=== PATIENT | female | born 1985 | race Caucasian/White ===

== ENCOUNTER → 2020-03-17 09:15 | Outpatient (CLI) | payer OTHER, SELFPAY ==
--- NOTE | ~2020-03-17 | US_ITS ---
US breast BI complete DATE: 03/17/2020 10:04 INDICATION: Bilateral axillary pain TECHNIQUE: Real-time imaging of both complete breasts and axillary areas COMPARISON: None FINDINGS: Bilateral benign-appearing axillary lymph nodes are noted, measuring up to approximately 5 x 10 x 14.5 mm on the right, a 7 x 13 x 11 mm on the left. There are numerous scattered benign cysts and circumscribed hypoechoic parallel solid subcentimeter l esions in each breast. No suspicious solid lesion or suspicious shadowing is evident. IMPRESSION: BI-RADS Category 2: Benign Recommendation: Routine mammographic screening beginning at age 40 Reviewed, dictated and finalized at [facility]. Reviewed, dictated and finalized at [facility].
== END ==
PROVIDERS: Visit Provider Nurse Practitioner Obstetrics & Gynecology
DX: M79.629 Pain in unspecified upper arm (principal); R92.2 Inconclusive mammogram
CPT/HCPCS: 76641

== ENCOUNTER 2022-08-27 10:56 | Outpatient (CLI) | payer OTHER, SELFPAY ==
--- NOTE | ~2022-08-27 | XR_ITS ---
EXAMINATION: XR hysterosalpingogram DATE: 08/27/2022 13:29 CDT INDICATION: Infertility TECHNIQUE: Fluoroscopy was provided for a hysterosalpingogram performed by Dr. Josue Horta. 22 fluoros copic images. 0.4 minutes of fluoroscopy time. 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 There is normal intraluminal morphology of the uterus. The fallopian tubes are normal in appearance and a re widely patent, with free spill into the peritoneal cavity from both sides. IMPRESSION: 1. Normal hysterosalpingogram. The uterus demonstrates normal intraluminal morphology and both fall opian tubes are patent. Reviewed, dictated and finalized at [facility]. IMPRESSION: 1. Normal hysterosalpingogram. The uterus demonstrates normal intraluminal mo rphology and both fallopian tubes are patent.
[2022-08-27 12:37] LABS: Beta HCG Quantitative < 2.39 mIU/ML
--- NOTE | 2022-08-27 13:08 | W.PM.PROC2 ---
Procedure Note - Detailed Date of Procedure 08/27/22 Pre-op Diagnosis infertility Post-op Diagnosis Same Procedure Performed Hysterosalpingogram Surgeon Jose R Horta MD Anesthesia None Indications unexplained infertility Findings normal hysterosalpingogram Description of Procedure the patient was placed on the fluoroscopy table. A speculum was placed in the vagina. Cervix was grasped with a tenaculum. The catheter was placed the uterine cavity and the bulb was inflated. The speculum was removed with the angiocath still placed in the intrauterine cavity. Dye was then removed. The catheter. Fluoroscopic images obtained this process. Patient experienced some moderate to severe discomfort. The balloon of the catheter was deflated and the catheter was removed while the images were being obtained. The procedure was terminated. Patient tolerated the procedure well. There were no complications. Estimated Blood Loss 0 Complications No immediate complications Condition Stable Disposition Other
== END 2022-08-27 10:57 | disposition home or self-care (01) ==
PROVIDERS: PCP Family Medicine Adolescent Medicine; Visit Provider Obstetrics & Gynecology
DX: Z01.818 Encounter for other preprocedural examination (principal)
CPT/HCPCS: 36415; 58340; 74740; 84702; Q9966

== ENCOUNTER → 2022-09-09 11:55 | Outpatient (CLI) | payer OTHER, SELFPAY ==
--- NOTE | ~2022-09-09 | XR_ITS ---
XR_[id number]_CR DATE: 09/09/2022 12:54 INDICATION: Injury. Pain of right ribs along the anterior axillary line, approximately eighth rib TECHNIQUE: PA chest. 3 views of the right ribs. COMPARISON: None FINDINGS: Normal heart size. No hilar or mediastinal enlargement. No pulmonary infiltrate or consolid ation, pleural effusion or pulmonary vascular congestion or pneumothorax. No right rib fracture or lyndsay ne destruction is detected. IMPRESSION: Negative Reviewed, dictated and finalized at [facility]. Reviewed, dictated and finalized at [facility]. IMPRESSION: Negative
== END ==
PROVIDERS: PCP Family Medicine Adolescent Medicine; Visit Provider Family Medicine Adolescent Medicine
DX: R07.81 Pleurodynia (principal)
CPT/HCPCS: 71101

== ENCOUNTER 2022-09-20 09:22 | Emergency (ER) | payer OTHER, SELFPAY ==
--- NOTE | ~2022-09-20 | XR_ITS ---
EXAMINATION: XR ribs RT 2V w CXR 2V INDICATION: Right chest pain TECHNIQUE: PA and lateral views of the chest and 3 views of the right ribs were obtained. COMPARISON: 11/07/2015 FINDINGS: The lungs are free of acute opacities. No pleural effusion or pneumothorax. The cardiomedia stinal silhouette is normal. No displaced rib fracture is identified. IMPRESSION: 1. No acute cardiopulmonary abnormality or evidence of displaced rib fracture. Reviewed, dictated and finalized at [facility].
--- NOTE | ~2022-09-20 | US_ITS ---
EXAMINATION: US right upper quadrant DATE: 09/20/2022 11:05 INDICATION: Right upper quadrant pain TECHNIQUE: Multiple grayscale and Doppler ultrasound images of the abdomen were obtained. COMPARISON: None available FINDINGS: The head and body of the pancreas are normal. The pancreatic tail is obscured by bowel gas. The liver demonstrates increased echogenicity, heterogenous echotexture, and decreased through trans mission. No surface nodularity. Normal hepatopetal flow in the main portal vein. The gallbladder is n ormal with no abnormal wall thickening, pericholecystic fluid or stones. The normal common bile duct measures 3 mm. There was no sonographic Porter sign. IMPRESSION: 1. Diffuse hepatic steatosis. Reviewed, dictated and finalized at [facility].
[2022-09-20 09:26] VITALS: BP 149/82; PULSE 86; RESP 20; TEMP 36.6; O2SAT 100
[2022-09-20 09:57] LABS: Basophils Percent Auto 0.4 % (0.2-1.2); Eosinophils Percent Auto 0.4 % (0-4.4); Hematocrit 40.1 % (37.0-47.0); Hemoglobin 12.9 g/dL (12.0-15.0); Immature Granulocyte Absolute 0.04 K/mm3 (0.00-0.031); Immature Granulocyte Percent A 0.4 % (0-0.5); Lymphocytes Absolute Auto 2.94 K/mm3 (0.9-3.2); Lymphocytes Percent Auto 29.9 % (18.3-44.2); Mean Corpuscular HGB Conc 32.2 g/dl (32-36); Mean Corpuscular Hemoglobin 29.2 pg (26-34); Mean Corpuscular Volume 90.7 fl (80-100); Mean Platelet Volume 10.4 fl (7.4-10.4); Monocytes Absolute Auto 0.4 K/mm3 (0.1-0.6); Monocytes Percent Auto 4.3 % (2.6-8.5); Neutrophils Absolute Auto 6.4 K/mm3 (1.3-6.7); Neutrophils Percent Auto 64.6 % (45.5-73.1); Platelet Count Result 247 k/mm3 (150-375); Red Blood Count 4.42 M/mm3 (4.2-5.4); White Blood Count 9.8 K/mm3 (4.5-10.0)
[2022-09-20 10:01] LABS: Appearance Urine Clear (Clear); Bacteria Urine 1+ /hpf; Bilirubin Urine Negative (Negative); Blood Urine Trace (Negative); Color Urine Yellow (Yellow); Glucose Urine UA Negative (Negative); Ketones Urine Negative (Negative); Leukocyte Esterase Ur Trace LEU/UL (Negative); Nitrate Urine Negative (Negative); Non Pathogenic Casts 0-2; Protein Urine Negative (Negative); RBC Urine 0-2 /hpf (0-2); Specific Grav Ur 1.012 (1.001-1.035); Squamous Epithelial Cell Urine Occasional /hpf (Few); Urobilinogen Urine 0.2 mg/dL (<2.0); pH Urine 5.5 (5.0-9.0)
[2022-09-20 10:09] LABS: Alanine Aminotransferase 62 U/L (6-35); Albumin Level 4.8 g/dL (3.5-5.1); Alkaline Phosphatase 118 U/L (38-126); Anion Gap 12 mmol/L (8-16); Aspartate Amino Transferase 48 U/L (14-36); Bilirubin,Total 0.6 mg/dL (0.2-1.3); Blood Urea Nitrogen 15 mg/dL (7-17); Calcium 8.9 mg/dL (8.4-10.2); Carbon Dioxide 20 mmol/L (22-30); Chloride 103 mmol/L (98-107); Estimated CRCL calculation 95 ml/min; Estimated Glomerular Filt Rate > 60; Glucose 107 mg/dL (65-110); Potassium 3.9 mmol/L (3.4-5.0); Sodium 135 mmol/L (137-145)
[2022-09-20 10:11] LABS: Add Urine Microscopic? YES
[2022-09-20] MEDS: SODIUM CHLORIDE 0.9% IV 1,000 ML 999 ML IV CONT (10:51)
[2022-09-20] MEDS: KETOROLAC 30 MG/ML VIAL (*BKC) IV PUSH (10:51)
[2022-09-20] MEDS: methocarbamoL 500 MG TABLET PO (10:54)
[2022-09-20 11:04] LABS: Lactic Acid Reflex 1.1 mmol/L (0.7-2.0); Lipase 66 U/L (23-300)
--- NOTE | 2022-09-20 11:04 | ED.GENADULT ---
HPI - General Adult General Chief complaint: Back Pain/Injury Stated complaint: right flank Time Seen by Provider: 09/20/22 09:30 History of Present Illness HPI narrative: 37-year-old female reports for evaluation of right upper quadrant pain x1 month and right-sided thoracic pain x3 days. Patient states 1 month ago, a dog jumped on her right upper abdomen and right lower ribs. Since then she has been pain in this area, however it has slowly improved. She was evaluated by primary care and had a negative chest x-ray. States 3 days ago the pain moved to her right upper thoracic back inferior to her scapula. Reports the back pain is worse with movement and positions. Patient reports her right upper quadrant pain is also worse with positions and sometimes after eating. Denies chest pain, shortness of breath, nausea, vomiting, diarrhea, fever, bodyaches, chills, urinary complaints. Patient reports taking Flexeril for her back pain without relief. Related Data Home Medications Medication Instructions Recorded Confirmed fexofenadine 180 mg tablet 180 mg PO DAILY 11/06/21 09/09/22 ([facility] Allergy) levothyroxine 50 mcg tablet mcg 09/20/22 (Unithroid) Allergies Allergy/AdvReac Type Severity Reaction Status Date / Time No Known Allergies Allergy Unverified 09/20/22 09:48 Review of Systems Review of Systems: CONSTITUTIONAL: Denies fever, chills EYES: Denies visual changes, redness, or discharge. ENT: Denies rhinorrhea, congestion, sore throat, or otalgia. CARDIOVASCULAR: Denies chest pain, palpitations, or edema. RESPIRATORY: Denies cough or dyspnea. GASTROINTESTINAL: See HPI GENITOURINARY: Denies dysuria or hematuria. SKIN: Denies rash or itching. MUSCULOSKELETAL: See HPI NEUROLOGIC: Denies headache, numbness, dizziness, or weakness. PSYCHIATRIC: Denies anxiety or depression. [facility] Past Medical History Medical History Abnormal weight gain Bilateral knee pain Chronic GERD Patella-femoral syndrome Seasonal allergies Surgical History Surgical History History of appendectomy History of breast biopsy Family History Family History Unknown Arthritis Father Acute myocardial infarction Arthritis Cancer Father Colon polyp Heart disease Mother Arthritis Cerebrovascular accident Depression Hypertension Grandparent Carcinoma of colon Cerebrovascular accident Heart disease Social History Social History Smoking status: Never smoker Second hand tobacco smoke exposure: No Alcohol intake: current Drinks per week: 21 Substance use: never Substance use type: does not use Living arrangements: with roommate(s) Occupation/Education: occupation Gender identity (if verbalized by the patient): Female Sexual Orientation (if Verbalized by the Patient): Lesbian, Poole, or Homosexual Spiritual care concerns: No Agree to blood products: Yes Exam Narrative: GENERAL: Well-appearing, well-nourished, and in no acute distress. Patient resting comfortably in exam bed. She is pleasant and conversational. HEAD: Normocephalic, atraumatic. EYES: PERRLA and EOMI. ENT: Nares clear, no rhinorrhea or epistaxis. Mucous membranes moist. Oropharynx without tonsillar hypertrophy exudate or other lesions. NECK: Supple. CHEST: Clear to auscultation. No respiratory distress. No wheezes rales or rhonchi. No tenderness to anterior chest wall. HEART: Regular rate and rhythm. No murmur heard. Normal peripheral pulses. ABDOMEN: Soft, nondistended, normal active bowel sounds. Tenderness to the right upper quadrant with deep palpation. Positive Porter's. No tenderness to remaining abdomen. No guarding or rigidity. No overlying skin changes. BACK: No midline vertebral tendern
[2022-09-20 11:43] VITALS: BP 124/84; PULSE 75; RESP 16; O2SAT 100
--- NOTE | 2022-09-27 10:25 | PC.NURSE ---
LATE ENTRY This note is being entered to document information to the patient's record. The following information was omitted on [09/27/22], by [Tiara ROSENBAUM stopped at 1151 on 09/20/22].
== END 2022-09-20 12:14 | disposition home or self-care (01) ==
PROVIDERS: Emergency Medicine; Emergency Provider Physician Assistant; PCP Family Medicine Adolescent Medicine
DX: S29.012A Strain of muscle and tendon of back wall of thorax, initial encounter (principal); K76.0 Fatty (change of) liver, not elsewhere classified; K21.9 Gastro-esophageal reflux disease without esophagitis; X58.XXXA Exposure to other specified factors, initial encounter
CPT/HCPCS: 36415; 71046; 71100; 76705; 80053; 81001; 81025; 83605; 83690; 85025; 87086; 87088; 96361; 96374; 99284; A9270; J1885; J7030

== ENCOUNTER → 2022-09-22 14:54 | Outpatient (CLI) | payer OTHER, SELFPAY ==
--- NOTE | ~2022-09-22 | US_ITS ---
EXAMINATION: US thyroid DATE: 09/22/2022 15:08 INDICATION: Nontoxic goiter. Hyperthyroid. Taking prescription thyroid hormone. TECHNIQUE: Multiple ultrasound images of the thyroid were obtained. COMPARISON: None. FINDINGS: The right thyroid lobe measures 4.0 x 2.0 x 2.1 cm. The left thyroid lobe measures 4.3 x 1.7 x 1.6 c m. The isthmus measures 0.4 cm. There is heterogeneous echotexture and echogenicity throughout the th yroid gland. No discrete nodules identified. Normal vascular flow is present. IMPRESSION: Heterogeneous echogenicity of the thyroid gland, a nonspecific finding that can be associated with Pike shimoto thyroiditis and Graves' disease. Reviewed, dictated and finalized at [facility]. IMPRESSION: Heterogeneous echogenicity of the thyroid gland, a nonspecific finding that can be associated with Marlen thyroiditis and Graves' disease.
== END ==
PROVIDERS: PCP Internal Medicine Endocrinology, Diabetes & Metabolism; Visit Provider Internal Medicine Endocrinology, Diabetes & Metabolism
DX: E04.9 Nontoxic goiter, unspecified (principal)
CPT/HCPCS: 76536

== ENCOUNTER 2024-08-13 11:42 | Outpatient (CLI) | payer OTHER, SELFPAY ==
[2024-08-13 12:21] VITALS: BP 143/91; PULSE 86
[2024-08-13 12:28] LABS: Basophils Percent Auto 0.4 % (0.2-1.2); Eosinophils Absolute Auto 0.3 K/mm3 (0-0.3); Eosinophils Percent Auto 3.9 % (0-4.4); Hematocrit 27.9 % (37.0-47.0); Hemoglobin 8.4 g/dL (12.0-15.0); Immature Granulocyte Absolute 0.03 K/mm3 (0.00-0.031); Immature Granulocyte Percent A 0.4 % (0-0.5); Lymphocytes Absolute Auto 2.43 K/mm3 (0.9-3.2); Lymphocytes Percent Auto 31.5 % (18.3-44.2); Mean Corpuscular HGB Conc 30.1 g/dl (32-36); Mean Corpuscular Hemoglobin 23.9 pg (26-34); Mean Corpuscular Volume 79.3 fl (80-100); Mean Platelet Volume 12.1 fl (7.4-10.4); Monocytes Absolute Auto 0.3 K/mm3 (0.1-0.6); Monocytes Percent Auto 4.4 % (2.6-8.5); Neutrophils Absolute Auto 4.6 K/mm3 (1.3-6.7); Neutrophils Percent Auto 59.4 % (45.5-73.1); Platelet Count Result 211 k/mm3 (150-375); Red Blood Count 3.52 M/mm3 (4.2-5.4); Red Cell Distribution Width 21.5 % (11.5-14.5); White Blood Count 7.7 K/mm3 (4.5-10.0)
[2024-08-13 12:30] VITALS: BP 141/88; PULSE 85
[2024-08-13 12:38] LABS: Alanine Aminotransferase 19 U/L (6-35); Albumin Level 3.1 g/dL (3.5-5.1); Alkaline Phosphatase 111 U/L (38-126); Anion Gap 9 mmol/L (4-12); Aspartate Amino Transferase 25 U/L (14-36); Bilirubin,Total 0.3 mg/dL (0.2-1.3); Blood Urea Nitrogen 12 mg/dL (7-17); Calcium 8.6 mg/dL (8.4-10.2); Carbon Dioxide 17 mmol/L (22-30); Chloride 110 mmol/L (98-107); Estimated Glomerular Filt Rate > 60; Glucose 98 mg/dL (65-110); Potassium 3.7 mmol/L (3.4-5.0); Sodium 136 mmol/L (137-145); Uric Acid 5.9 mg/dL (2.5-7.5)
[2024-08-13 12:41] LABS: Add Urine Microscopic? YES; Appearance Urine Clear (Clear); Bacteria Urine 1+ /hpf; Bilirubin Urine Negative (Negative); Blood Urine Negative (Negative); Color Urine Yellow (Yellow); Glucose Urine UA Negative (Negative); Ketones Urine Negative (Negative); Leukocyte Esterase Ur Negative LEU/UL (Negative); Mucus Urine Present /lpf; Need Manual Microscopic Reviewed; Nitrate Urine Negative (Negative); Protein Urine 3+ mg/dL (Negative); RBC Urine 0-2 /hpf (0-2); Specific Grav Ur 1.011 (1.001-1.035); Squamous Epithelial Cell Urine Moderate /hpf (Few); Urobilinogen Urine 0.2 mg/dL (<2.0); pH Urine 5.5 (5.0-9.0)
[2024-08-13 12:45] VITALS: BP 142/88; PULSE 82
[2024-08-13 13:01] LABS: Creatinine Urine 70.7 mg/dL
[2024-08-13 13:17] VITALS: BP 143/91; PULSE 87
[2024-08-13 13:17] LABS: Total Protein Urine Random 295 mg/dL; Ur Ttl Prot Creatinine Ratio 4.17 mg/mg (0-0.20)
--- OUTSIDE RECORDS SUMMARY | 2024-08-13 14:18 | XMS_ITS | Clinical Summary ---
Author Organization [employer] [facility] [address] [place] [phone] Phone Care Team Providers Care Overhauler Name Role Phone Unavailable Primary Care Provider Unavailabl e Encounters Date Type Department Care Team Description 08/09/2024 12:53 PM CDT - 08/09/2024 11:59 PM CDT Hospital Encounter [facility] Jose Cisse [address] [place] [phone] Raj Oliveros MD Discharge Disposition: Home or Self Care 08/09/2024 12:45 PM CDT - 08/09/2024 11:59 PM CDT Hospital Encounter [facility] Jose Cisse [address] [place] [phone] Raj Oliveros MD Discharge Disposition: Home or Self Care 08/09/2024 Abstract [facility] - Medical [place] [address] [facility] [address] [place] [address] Karolina Moore RN 08/09/2024 Orders Only [facility] Maternal and [facility] Floor [address] [facility] [address] [place] [address] Raj Oliveros MD Gestational hypertension, antepartum (Primary Dx) from Last 3 Months Social History Tobacco Use Types Packs/Day Years Used Date Smoking Tobacco: Never Assessed Estimated Date of Delivery Comme nts Yes 10/22/2024 Sex and Gender Information Value Date Recorded Sex Assigned at Female 08/06/2024 9:23 AM CDT 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 [address] [facility] [address] [address] [facility] [address] [place] [phone] Bethany Duffy, ELANA [address] [facility] [address] [place] [address] Health Maintenance Due Date Last Done Comments HEPATITIS B VACCINES (1 of 3 - 19+ 3-dose series) 2002 CERVICAL CANCER SCREENING 2013 BREAST CANCER SCREENING 2023 INFLUENZA VACCINE (#1) 2023 Preventative Visit- Commercial 05/30/2024 03/17/2021, 03/14/2020, 11/19/2002, Additional history exists DTAP/TDAP/TD VACCINES (2 - Td or Tdap) 11/22/2032 11/22/2022 HPV VACCINES Aged Out No longer eligi ble based on patient's age to complete this topic RSV VACCINE (60+ or ) (No Doses Required) Completed Procedures Procedure Name Priority Date/Time Associated Diagnosis Comments ECHO 2D + COLOR FLOW VELOCITY Routine 08/09/2024 2:36 PM CDT screening for malformation using ultrasonics In vitro fertilization US OB DETAIL SINGLE GEST Routine 08/09/2024 2:35 PM CDT screening for malformation using ultrasonics Gestational hypertension, antepartum In vitro fertilization from Last 3 Months Results * ECHO 2D + COLOR FLOW VELOCITY (08/09/2024 2:36 PM CDT) Narrative 08/09/2024 2:36 PM CDT Order information only. Exam was auto-finalized. us Raj Oliveros MD US ORDERABLES Final Result * US OB DETAIL SINGLE GEST (08/09/2024 2:35 PM CDT) Anatomical Region Laterality Modality Pelvis Ultrasound 08/09/2024 12:5 8 PM CDT Narrative 08/09/2024 2:39 PM CDT STL COMP ----- Pat. Name: SIGIFREDO VANEGAS Study Date: 08/09/2024 12:58pm Pat. NO: [id number] Referring MD: RAJ OLIVEROS MD Site: [place] Floor Space Allocator: Rayne Baldwin RDMS : 1985 Age: 39 ----- INDICATION ----- Anatomy Survey IVF Resulting from Assistive donor sperm per pt Reproductive Technique Advanced Maternal Age (AMA), Primigravida CODING ----- Diagnoses Z3A.29: Weeks of gestation O09.513: Supervision of elderly primigravida O09.893: Supervision of other high risk pregnancies O09.813: Supervision of resulting from assisted reproductive technology Z36.3: Encounter for screening for malformations Procedures 56681: Ultrasound, uterus, real time with image documentation, and maternal evaluation plus detailed anatomic examination, transabdominal approach HISTORY ----- OB History 1 MATERNAL ASSESSMENT ----- Physical Exam Initial weight 75 kg, 166 lb. Initial BMI 28.49 kg/m METHOD ----- Transabdominal ultrasound examination ----- Mcfadden . Number of fetuses: 1 DATING ----- Method of dating: based on stated ELO GA by prior assessment 29 w + 3 d ELO by prior assessment: 10/22/2024 Ultrasound examination on: 08/09/2024 GA by U/S based upon: AC, BPD, EFW, Femur, HC GA by U/S 30 w + 3 d ELO by U/S: 10/15/2024 Assigned: based on stated ELO, selected on 08/09/2024 Assigned GA 29 w + 3 d Assigned ELO: 10/22/2024 BIOMETRY ----- BPD 75.6 mm 30w 2d 67% Hadlock OFD 103.7 mm 33w 6d >99% Marian HC 286.1 mm 31w 3d 75% Hadlock Cerebellum tr 39.1 mm 33w 0d 91% West AC 261.7 mm 30w 2d 71% Hadlock Femur 57.1 mm 30w 0d 50% Hadlock Humerus 49.9 mm 29w 2d 41% Marian HC / AC 1.09 53% Nicolaides Weight Calculation: EFW 1,548 g 30w 0d 68% Hadlock EFW (lb,oz) 3 lb 7 oz EFW by Hadlock ([id number]) Head / Face / Neck Biometry: Sr. Merchandise Planner 3.1 mm CM 3.6 mm <1% Nicolaides Inner IOD 19.7 mm Thorax / Lungs Biometry: Thoracic circ 194.4 mm 11% Lessoway Thoracic area 29.7 cm ThC / AC 0.74 Heart / Great Vessels Biometry: Cardiac axis 43 Cardiac circ 121.7 mm Cardiac area 11.5 cm CC / ThC 0.63 CA / Miguel 0.39 PA main 7.8 mm Ductus art. 4.1 mm 54% Steel Rt PA branch 3.4 mm Lt PA branch 3.7 mm Ao asc 4.4 mm Ao isthmus 3.4 mm Ao desc 5.1 mm PA main / Ao asc 1.77 McGoon Index mod. 1.4 Ao isthmus / Ductus art. 0.83 IVC 4.2 mm SVC 3.6 mm Extremities / Bony Struc Biometry: FL / BPD 0.76 FL / HC 0.20 FL / AC 0.22 GENERAL EVALUATION ----- Cardiac activity present. FHR 143 bpm. movements: present. Presentation: breech, Variable Placenta: Placental site: posterior, fundal Umbilical cord: Cord vessels: 3 vessel cord. Insertion site: placental insertion: normal Amniotic fluid: Amount of AF: normal amount. MVP 5.8 cm. NILA 15.9 cm. Q1 5.1 cm, Q2 5.8 cm, Q3 2.4 cm, Q4 2.7 cm ANATOMY ----- The following structures appear normal: Head / Neck Cranium. Lateral ventricles. Choroid plexus. Midline falx. Cavum septi pellucidi. Cerebellum. Cisterna magna. Face Orbits. Heart / Thorax RVOT view. LVOT view. 3-vessel view. 7-jkirzh-ccxtfnt view. Diaphragm. Abdomen Stomach. Kidneys. Bladder. Genitals. Spine Cervical spine. Thoracic spine. Lumbar spine. Sacral spine. Extremities / Arms. Right hand. Left hand. Legs. Right foot. Left foot. Skeleton The following structures could not be adequately visualized: Face Lips. Profile. Nose. Palate. Heart / Thorax 4-chamber view. Abdomen Abdominal wall. Cord insertion. sex: female. ECHOCARDIOGRAM ----- Situs situs solitus (normal) Cardiac rhythm regular (normal) 4-chamber view suboptimal LVOT view normal RVOT view normal 3-vessel view normal 6-kgasej-frasief view normal High short axis view normal Low short axis view normal Aortic arch view normal Ductal arch view normal SVC normal IVC normal Venous-atrial connections normal size and morphology AV connections normal alignment VA connections normal size and morphology IVC normal SVC normal Pulmonary veins normal size and morphology Right atrium normal Left atrium normal Atrial septum normal size and morphology Foramen ovale normal (in the central third/half, flap valve in left atrium) Right ventricle normal Left ventricle normal Ventricular septum normal size and morphology Tricuspid valve normal size and morphology Mitral valve normal size and morphology Pulmonary valve normal size and morphology Aortic valve normal size and morphology Cross-over gr. arteries anterior great artery (confirmed to be the pulmonary artery by its branching) which crosses the course of the proximal aorta, indicative of normal relationship of the great arteries Main PA the main pulmonary artery can be seen bifurcating into the arterial duct and the right pulmonary artery Pulmonary arteries normal Ascending aorta normal size and morphology Ductal arch normal Aortic arch normal Brachioceph. arteries normal Descending aorta normal size and morphology Ductus venosus normal Cardiac Biometry: RA width diast 13.1 mm RV width diast 12.8 mm 50% Steel RV wall diast 2.8 mm 47% Steel LA width diast 10.5 mm LV width diast 11.9 mm 36% Steel LV wall diast 2.8 mm 48% Steel IV Septum diast 2.9 mm 53% Steel LVOT diam 5.9 mm LVOT area 27.0 mm TV annulus diast 11.4 mm PV annulus syst 6.3 mm MV annulus diast 8.8 mm AoV annulus syst 4.9 mm MV annulus diast / TV annulus diast 0.77 AoV annulus syst / PV annulus syst 0.78 Heart Z-Scores: Z- FL Z- BPD Z- GA Z- EFW Zscore by RV width diast 12.8 mm 0.38 0.59 0.64 Taveras LV width diast 11.9 mm 0.18 0.46 0.49 Taveras TV annulus 11.4 mm 0.97 1.15 1.29 Taveras diast MV annulus 8.8 mm -0.45 -0.13 -0.08 Taveras diast PV annulus 6.3 mm 0.38 0.63 0.66 Taveras syst AoV annulus 4.9 mm -0.02 0.25 0.27 Taveras syst PA main 7.8 mm 1.06 1.45 1.41 Taveras Ductus art. 4.1 mm 0.41 0.67 0.64 Taveras Rt PA branch 3.4 mm 0.17 0.39 0.38 Nitin Lt PA branch 3.7 mm 0.95 1.20 1.18 Nitin Ao asc 4.4 mm -1.98 -1.69 -1.50 Nitin Ao isthmus 3.4 mm -0.46 -0.61 -0.60 -0.41 Gianni Ao desc 5.1 mm 0.44 0.73 0.76 Nitin IVC 4.2 mm 0.94 1.09 1.11 Nitin Cardiac Doppler: Tricuspid Valve: E-wave 38.65 cm/s A-wave 68.66 cm/s E / A 0.56 1% [facility]: E-wave 35.47 cm/s A-wave 54.11 cm/s E / A 0.66 36% [facility] Pulmonary Valve: Vmax 53.59 cm/s 24% Bhupinder Left Ventricular Outflow Tract: Vmax 73.70 cm/s Peak PG 2.17 mmHg DOPPLER ----- Aortic Isthmus: PS 91.39 cm/s Ductus Arteriosus: PS 109.58 cm/s MATERNAL STRUCTURES ----- Cervix Visualized Approach - Transabdominal Right Ovary Suboptimal Left Ovary Suboptimal GROWTH OVERVIEW ----- Exam date GA BPD (mm) HC (mm) AC (mm) FL (mm) HL (mm) EFW (g) 08/09/2024 29w 3d 75.6 67% 286.1 75% 261.7 71% 57.1 50% 49.9 41% 1,548 68% COMMENT ----- Patient's name and date of were verified by the event organizer before the exam IMPRESSION ----- Viable at 29 weeks complicated by IVF and advanced maternal age. The biometry is consistent with the established gestational age No structural malformations or markers of aneuploidy were identified Anatomic survey was technically limited due to the advanced gestational age Images of nose/lips, profile, palate and septal four-chamber view were suboptimal Amniotic fluid volume is normal Posterior fundal placenta with normal placental cord insertion appreciated; placenta is not low-lying A screening echocardiogram was performed today secondary to IVF. Satisfactory quality examination was obtained of the fetus. Cardiac situs, size and axis were normal. The four chamber view of the heart appeared normal. There were appropriately sized atrial and ventricular chambers, and normal appearing atrioventricular valves. Further evaluation of the ventricular outflow tracts showed two great vessels which appear to arise from the appropriate ventricles. The foramen ovale was patent with right to left shunting. The superior and inferior vena cava return to the right atrium. There are at least two pulmonary veins draining into the left atrium. There was no other signs of significant intracardiac anatomic abnormality. Normal cardiac rate, contractility and rhythm were demonstrated. Color and pulsed-wave Doppler evaluation of the atrioventricular and semilunar valves were within normal limits. Two dimensional and Doppler interrogation of the aortic and ductal arches were within normal limits. There is no evidence of pericardial effusion. The ductus venosus is normal. closure of the ductus arteriosus and foramen ovale cannot be predicted on the basis of evaluation. Additionally, small ventricular or atrial septal defects and mild valve abnormalities cannot be definitely ruled out at this time. diagnosis of coarctation of the aorta is limited secondary to patency of the ductus arteriosus. Ultrasound cannot identify all structural malformations nor exclude a diagnosis of aneuploidy. Recommendations: -Recommend a follow-up ultrasound in 4 weeks to assess growth and development -Recommend serial growth ultrasounds every 4 weeks -Recommend twice-weekly modified biophysical profile starting at 36 weeks gestation No follow-up ultrasounds were scheduled at this time. Procedure Note Randy Muñoz MD - 08/09/2024 STL COMP ----- Pat. Name:VENANCIO VANEGAStcooper Date:08/09/2024 12:58pm Pat. NO: [id number] MD:RAJ OLIVEROS [facility]Rayne Baldwin RDMS :1985Age:39 ----- INDICATION ----- Anatomy Survey IVF Resulting from Assistive donor sperm per pt Reproductive Technique Advanced Maternal Age (AMA), Primigravida CODING ----- Diagnoses Z3A.29: Weeks of gestation O09.513: Supervision of elderly primigravida O09.893: Supervision of other high riskpregnancies O09.813: Supervision of resulting fromassisted reproductive technology Z36.3: Encounter for screening formalformations Procedures [id number]: Ultrasound, uterus, real time withimage documentation, and maternal evaluation plus detailed anatomic examination,transabdominal approach HISTORY ----- OB History 1 MATERNAL ASSESSMENT ----- Physical Exam Initial weight 75 kg, 166 lb. Initial BMI 28.49kg/m METHOD ----- Transabdominal ultrasound examination ----- Mcfadden . Number of fetuses: 1 DATING ----- Method of dating:based on stated ELO GA by prior [id number] w + 3 d ELO by prior assessment:10/22/2024 Ultrasound examination on:08/09/2024 GA by U/S based upon:AC, BPD, EFW, Femur, HC GA by U/S30 w + 3 d ELO by U/S:10/15/2024 Assigned:based on stated ELO, selected on 08/09/2024 Assigned GA29 w + 3 d Assigned ELO:10/22/2024 BIOMETRY ----- BPD 75.6 mm 30w 2d67% Hadlock OFD 103.7 mm 33w 6d>99% Marian HC 286.1 mm 31w 3d75% Hadlock Cerebellum tr 39.1 mm 33w 0d91% West AC 261.7 mm 30w 2d71% Hadlock Femur 57.1 mm 30w 0d50% Hadlock Humerus 49.9 mm 29w 2d41% Marian HC / AC 1.09 53%Nicolaides Weight Calculation: EFW 1,548 g 30w 0d68% Hadlock EFW (lb,oz) 3 lb 7 oz EFW by Hadlock ([id number]) Head / Face / Neck Biometry: Sr. Merchandise Planner 3.1 mm CM 3.6 mm <1%Nicolaides Inner IOD 19.7 mm Thorax / Lungs Biometry: Thoracic circ 194.4 mm 11%Less[place]ay Thoracic area 29.7 cm ThC / AC 0.74 Heart / Great Vessels Biometry: Cardiac axis 43 Cardiac circ 121.7mm Cardiac area 11.5cm CC / ThC 0.63 CA / Miguel 0.39 PA main 7.8 mm Ductus art. 4.1 mm54% Steel Rt PA branch 3.4 mm Lt PA branch 3.7 mm Ao asc 4.4 mm Ao isthmus 3.4 mm Ao desc 5.1 mm PA main / Ao asc 1.77 McGoon Index mod. 1.4 Ao isthmus / Ductus art. 0.83 IVC 4.2mm SVC 3.6mm Extremities / Bony Struc Biometry: FL / BPD 0.76 FL / HC 0.20 FL / AC 0.22 GENERAL EVALUATION ----- Cardiac activity present. FHR 143 bpm. movements: present.Presentation: breech, Variable Placenta: Placental site: posterior, fundal Umbilical cord: Cord vessels: 3 vessel cord. Insertion site: placentalinsertion: normal Amniotic fluid: Amount of AF: normal amount. MVP 5.8 cm. NILA 15.9 cm. Q15.1 cm, Q2 5.8 cm, Q3 2.4 cm, Q4 2.7 cm ANATOMY ----- The following structures appear normal: Head / Neck Cranium. Lateral ventricles. Choroid plexus.Midline falx. Cavum septi pellucidi. Cerebellum. Cisterna magna. Face Orbits. Heart / Thorax RVOT view. LVOT view. 3-vessel view.0-kfpgqr-hivmcqo view. Diaphragm. Abdomen Stomach. Kidneys. Bladder. Genitals. Spine Cervical spine. Thoracic spine. Lumbar spine.Sacral spine. Extremities / Arms. Right hand. Left hand. Legs. Right foot.Left foot. Skeleton The following structures could not be adequately visualized: Face Lips. Profile. Nose. Palate. Heart / Thorax 4-chamber view. Abdomen Abdominal wall. Cord insertion. sex: female. ECHOCARDIOGRAM ----- Situs situs solitus (normal) Cardiac rhythm regular (normal) 4-chamber view suboptimal LVOT view normal RVOT view normal 3-vessel view normal 1-nbcwab-zwvevzp view normal High short axis view normal Low short axis view normal Aortic arch view normal Ductal arch view normal SVC normal IVC normal Venous-atrial connections normal size and morphology AV connections normal alignment VA connections normal size and morphology IVC normal SVC normal Pulmonary veins normal size and morphology Right atrium normal Left atrium normal Atrial septum normal size and morphology Foramen ovale normal (in the centralthird/half, flap valve in left atrium) Right ventricle normal Left ventricle normal Ventricular septum normal size and morphology Tricuspid valve normal size and morphology Mitral valve normal size and morphology Pulmonary valve normal size and morphology Aortic valve normal size and morphology Cross-over gr. arteries anterior great artery(confirmed to be the pulmonary artery by its branching) which crosses the course of theproximal aorta, indicative of normal relationship of the great arteries Main PA the main pulmonary artery canbe seen bifurcating into the arterial duct and the right pulmonary artery Pulmonary arteries normal Ascending aorta normal size and morphology Ductal arch normal Aortic arch normal Brachioceph. arteries normal Descending aorta normal size and morphology Ductus venosus normal Cardiac Biometry: RA width diast 13.1 mm RV width diast 12.8 mm50% Steel RV wall diast 2.8 mm47% Steel LA width diast 10.5 mm LV width diast 11.9 mm36% Steel LV wall diast 2.8 mm48% Steel IV Septum diast 2.9 mm53% Steel LVOT diam 5.9mm LVOT area 27.0mm TV annulus diast 11.4mm PV annulus syst 6.3mm MV annulus diast 8.8mm AoV annulus syst 4.9mm MV annulus diast / TV annulus diast 0.77 AoV annulus syst / PV annulus syst 0.78 Heart Z-Scores: Z- FL Z- BPD Z-GA Z- EFW Zscore by RV width diast 12.8 mm 0.38 0.590.64 Taveras LV width diast 11.9 mm 0.18 0.460.49 Taveras TV annulus 11.4 mm 0.97 1.151.29 Taveras diast MV annulus 8.8 mm -0.45 -0.13-0.08 Taveras diast PV annulus 6.3 mm 0.38 0.630.66 Taveras syst AoV annulus 4.9 mm -0.02 0.250.27 Taveras syst PA main 7.8 mm 1.06 1.451.41 Taveras Ductus art. 4.1 mm 0.41 0.670.64 Taveras Rt PA branch 3.4 mm 0.17 0.390.38 Taveras Lt PA branch 3.7 mm 0.95 1.201.18 Taveras Ao asc 4.4 mm -1.98 -1.69-1.50 Taveras Ao isthmus 3.4 mm -0.46 -0.61-0.60 -0.41 Gianni Ao desc 5.1 mm 0.44 0.730.76 Taveras IVC 4.2 mm 0.94 1.091.11 Taveras Cardiac Doppler: Tricuspid Valve: E-wave 38.65 cm/s A-wave 68.66 cm/s E / A 0.561% Hecher Mitral Valve: E-wave 35.47 cm/s A-wave 54.11 cm/s E / A 0.6636% Hecher Pulmonary Valve: Vmax 53.59 cm/s24% Bhupinder Left Ventricular Outflow Tract: Vmax 73.70cm/s Peak PG 2.17mmHg DOPPLER ----- Aortic Isthmus: PS 91.39 cm/s Ductus Arteriosus: PS 109.58cm/s MATERNAL STRUCTURES ----- Cervix Visualized Approach - Transabdominal Right Ovary Suboptimal Left Ovary Suboptimal GROWTH OVERVIEW ----- Exam date GA BPD (mm) HC (mm) AC (mm) FL(mm) HL (mm) EFW (g) 08/09/2024 29w 3d 75.6 67% 286.1 75% 261.7 71%57.1 50% 49.9 41% 1,548 68% COMMENT ----- Patient's name and date of were verified by the event organizer beforethe exam IMPRESSION ----- Viable at 29 weeks complicated by IVF and advanced maternalage. The biometry is consistent with the established gestational age No structural malformations or markers of aneuploidy wereidentified Anatomic survey was technically limited due to the advanced gestationalage Images of nose/lips, profile, palate and septal four-chamber view weresuboptimal Amniotic fluid volume is normal Posterior fundal placenta with normal placental cord insertionappreciated; placenta is not low-lying A screening echocardiogram was performed today secondary to IVF.Satisfactory quality examination was obtained of the fetus. Cardiac situs, size and axis were normal. The four chamber view ofthe heart appeared normal. There were appropriately sized atrial and ventricular chambers, and normal appearingatrioventricular valves. Further evaluation of the ventricular outflow tracts showed two great vessels which appear to arise from theappropriate ventricles. The foramen ovale was patent with right to left shunting. The superior and inferior vena cava return to theright atrium. There are at least two pulmonary veins draining into the left atrium. There was no other signs of significantintracardiac anatomic abnormality. Normal cardiac rate, contractility and rhythm were demonstrated. Color and pulsed-wave Dopplerevaluation of the atrioventricular and semilunar valves were within normal limits. Two dimensional and Doppler interrogation ofthe aortic and ductal arches were within normal limits. There is no evidence of pericardial effusion. The ductus venosus isnormal. closure of the ductus arteriosus and foramen ovale cannot be predicted on the basis of evaluation.Additionally, small ventricular or atrial septal defects and mild valve abnormalities cannot be definitely ruled out at this time. diagnosis of coarctation of the aorta is limited secondary to patency of the ductus arteriosus. Ultrasound cannot identify all structural malformations nor exclude adiagnosis of aneuploidy. Recommendations: -Recommend a follow-up ultrasound in 4 weeks to assess growth anddevelopment -Recommend serial growth ultrasounds every 4 weeks -Recommend twice-weekly modified biophysical profile starting at 36 weeksgestation No follow-up ultrasounds were scheduled at this time. Raj Oliveros MD ORDERABLES Final Result from Last 3 Months Insurance [facility] OPTIONS PPO [id number] [facility] CHOICE [id number]
--- OUTSIDE RECORDS SUMMARY | 2024-08-13 14:18 | XMS_ITS | Encounter Summary ---
Author Organization [facility] Address [address] [place] [address] Care Team Providers Care Gymnastic Teacher Name Role Phone Unavailable Primary Care Provider Unavailabl e Encounter Details Date Type Department Care Team (Late st Contact Info) Description 11/19/2002 Outpatient Historical [facility] [place] [address] [facility] [address] [address] Dave Reid MD [address] [place] [phone] Social History Tobacco Use Types Packs/Day Years Used Date Smoking Tobacco: Never Assessed Comments Unknown Sex and Gender Information Value Date Recorded Sex Assigned at Female 08/06/2024 9:23 AM CDT 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 [address] [place] [address] Bethany Duffy NP [address] [facility] [address] [place] [address] documented as of this encounter Visit Diagnoses Not on filedocumented in this encounter
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
--- OUTSIDE RECORDS SUMMARY | 2024-08-13 14:18 | XMS_ITS | Referral Summary ---
Author Organization [facility] Address [address] [place] [address] Care Team Providers Care Drawer In Plain Loom Name Role Phone Anil Conde MD Primary [...] DRAW 11/03/19 24 Active BD Regular Bevel [place] 22 gauge x 1 1/2 needle USE DIRECTED [PROGESTERONE MEDICATION] INJECT INTRAMUSCULARLY 11/03/19 24 Active BD Regular Bevel [place] 25 gauge x 1 1/2 needle USE DIRECTED [H.C.G. MEDICATION] INJECT INTRAMUSCULARLY 11/03/19 24 Active BD Regular Bevel [place] 27 gauge x 1/2 needle USE DIRECTED [...] (01/24/2024): Dysfunctional uterine bleeding;Recorded Elsewhere: No Location: [facility] Source: EHR Chronic: N Practice ID: [id number] Billable Time: 08:15:00 AM Immunizations Immunization Administration Dates Next Due Tdap 11/22/2022 Social History Tobacco Use Types Packs/Day Years [...] on file Legal Sex Female 10:56 PM QUALITY CONTROL ASSOCIATE Gender Identity Female 07/22/2022 8:55 AM QUALITY CONTROL ASSOCIATE Sexual Orientation Lesbian 07/22/2022 8: 55 AM QUALITY CONTROL ASSOCIATE Last Filed Vital Signs Vital Sign Reading [...] 01/24/2024 4:27 PM CDT Plan of Treatment Not on file Insurance [facility] CHOICE PLUS R [facility] Advance Directives For more information, please contact: [phone] * Full Code (Latest Code Status on File) Date Activated Date Inactivated Comments 11/23/2022 11:19 PM 11/26/2022 6:01 PM Care Teams Drawer In Plain Loom Relationship Specialty Start Date End Date Anil Conde MD [address] [place] [address] PCP - General Family Medicine 11/22/22
--- OUTSIDE RECORDS SUMMARY | 2024-08-13 14:18 | XMS_ITS | Data Portability ---
Author Organization [facility] [place] Address [address] [place] [address] Care Team Providers Care District Or District Office Director Name Role Phone ZAHRA CONNORS Primary Care Provider Assessment No assessment recorded. Plan of Treatment Reminders Order Date Submit Date Provider Last Modified By Organization Details Last Modified Time Details Appointments U/S OB BPP 2024 03:00P M ULTRASOUND Not available Not available Not available NST 2024 03:30P M NST SCHEDULE Not available Not available Not available OB ROUTINE 2024 04:15P M RAJ VINES MD Not available Not available Not available NST 2024 03:00P M NST SCHEDULE Not available Not available Not available U/S OB GROWTH 2024 03:30P M ULTRASOUND Not available Not available Not available NST 2024 04:00P M NST SCHEDULE Not available Not available Not available OB ROUTINE 2024 04:45P M RAJ VINES MD Not available Not available Not available NST 2024 03:00P M NST SCHEDULE Not available Not available Not available U/S OB BPP 2024 03:00P M ULTRASOUND Not available Not available Not available NST 2024 03:30P M NST SCHEDULE Not available Not available Not available OB ROUTINE 2024 04:00P M RAJ VINES MD Not available Not available Not available NST 2024 03:00P M NST SCHEDULE Not available Not available Not available U/S OB BPP 2024 03:00P M ULTRASOUND Not available Not available Not available NST 2024 03:30P M NST SCHEDULE Not available Not available Not available OB ROUTINE 2024 04:15P M RAJ VINES MD Not available Not available Not available NST 2024 03:00P M NST SCHEDULE Not available Not available Not available U/S OB BPP 2024 03:00P M ULTRASOUND Not available Not available Not available NST 2024 03:30P M NST SCHEDULE Not available Not available Not available OB ROUTINE 2024 04:00P M RAJ VINES MD Not available Not available Not available NST 2024 03:00P M NST SCHEDULE Not available Not available Not available U/S OB BPP 2024 03:00P M ULTRASOUND Not available Not available Not available NST 2024 03:30P M NST SCHEDULE Not available Not available Not available OB ROUTINE 2024 04:00P M RAJ VINES MD Not available Not available Not available NST 2024 03:00P M NST SCHEDULE Not available Not available Not available U/S OB BPP 2024 03:00P M ULTRASOUND Not available Not available Not available NST 2024 03:30P M NST SCHEDULE Not available Not available Not available OB ROUTINE 2024 04:00P M RAJ VINES MD Not available Not available Not available NST 2024 03:00P M NST SCHEDULE Not available Not available Not available NST 2024 03:00P M NST SCHEDULE Not available Not available Not available NST 2024 02:00P M NST SCHEDULE Not available Not available Not available U/S OB BPP 2024 02:30P M ULTRASOUND Not available Not available Not available OB ROUTINE 2024 03:00P M Jose R BOJORQUEZ MD Not available Not available Not available NST 2024 03:00P M NST SCHEDULE Not available Not available Not available NST 2024 02:30P M NST SCHEDULE Not available Not available Not available U/S OB BPP 2024 03:00P M ULTRASOUND Not available Not available Not available OB ROUTINE 2024 03:30P M Justyna Vegagle, CNM Not available Not available Not available NST 2024 03:00P M NST SCHEDULE Not available Not available Not available NST 2024 02:30P M NST SCHEDULE Not available Not available Not available U/S OB BPP 2024 03:00P M ULTRASOUND Not available Not available Not available OB ROUTINE 2024 03:30P M Justyna Vegagle, CNM Not available Not available Not available Lab CBC w/ auto diff 2024 025 [facility] (Lab), [address], [place], [address], 08/08/2024 04:54:34 uric acid, serum or plasma 2024 025 [facility] (Lab), [address] [facility], [place], [address], 08/08/2024 04:54:34 CMP, serum or plasma 2024 025 [facility] (Lab), [address] [facility], [place], [address], 08/08/2024 04:54:35 protein :creati nine ratio, urine 2024 025 [facility] (Lab), [address], [place], [address], 08/08/2024 04:54:34 Referral None recorde d. Procedures None recorde d. Surgeries None recorde d. Imaging non-str ess test 2024 025 [email or web address] , [address], [address], [place], [address], 08/10/2024 17:01:22 non-str ess test 2024 025 [email or web address] , [address], [address], [place], [address], 08/08/2024 00:24:58 US, obstetr ic, biophys ical profile + non-str ess test 2024 025 [email or web address] [place], [address], [place], [address], 08/07/2024 22:06:14 non-str ess test 2024 025 [email or web address] [address], [address], [place], [address], 08/04/2024 14:12:20 Medication Orders None recorde d. Patient TargetsNo targets recorded. Patient InstructionsNo instructions recorded. Reason for Referral None Reported. Results Created Date Observation Date Name Description Value Unit Range Abnormal Flag Note LastModifiedBy Organization Detail LastModifiedTime 07/25/1907/25/2024 HEMOG LOBIN (HGB) HGB 8.3 g/dL (based on docume nted legal sex) 11.6-1 5.4 low Not Available [facility] (Lab) [address] [facility], [place], [address], 07/26/2024 20:30:55 07/25/1907/25/2024 HEMAT OCRIT (HCT) HCT 28.6 % (based on docume nted legal sex) 34.0-4 5.0 low Not Available [facility] (Lab) [address], [place], [address], 07/26/2024 20:30:56 07/25/1907/25/2024 GTT - GESTA PETR Marion POND N, ACOG OB glucose, 1 hour screen 120 mg/dL 70-135 Not Available [facility] (Lab) [address], [place], [address], 07/26/2024 20:30:56 07/25/19 25 07/25/2024 HIV 1/2 ANTIG EN/AN TIBOD Y, REFLE X CONFI RMATI ON HIV antigen/anti body Nonrea ctive nonrea ctive HIV-1 antig en and HIV-1 /HIV- 2 antib odies were not detec donna. No labor atory evide nce of HIV infec tion. Not Available [facility] (Lab) [address] [facility], [place], [address], 07/26/2024 20:30:56 07/25/19 25 07/25/2024 RPR SCREE N, REFLE X TITER /CONF IRMAT ION RPR qualitative Nonrea ctive nonrea ctive Not Available [facility] (Lab) [address] [facility], [place], [address], 07/26/2024 20:30:56 08/01/19 25 07/31/2024 CBC W/DIF F WBC 10.4 10'3/ uL 3.5-10 .5 Not Available [facility] (Lab) [address] [facility], [place], [address], 08/01/2024 06:51:45 08/01/19 25 07/31/2024 CBC W/DIF F RBC 3.72 10'6/ uL (based on docume nted legal sex) 3.80-5 .20 low Not Available [facility] (Lab) [address] [facility], [place], [address], 08/01/2024 06:51:45 08/01/19 25 07/31/2024 CBC W/DIF F HGB 8.4 g/dL (based on docume nted legal sex) 11.6-1 5.4 low Not Available [facility] (Lab) [address] [facility], [place], [address], 08/01/2024 06:51:45 08/01/19 25 07/31/2024 CBC W/DIF F HCT 28.9 % (based on docume nted legal sex) 34.0-4 5.0 low Not Available [facility] (Lab) [address] [facility], [place], [address], 08/01/2024 06:51:45 08/01/19 25 07/31/2024 CBC W/DIF F MCV 77.7 fL 80.0-9 9.0 low Not Available [facility] (Lab) [address], [place], [address], 08/01/2024 06:51:45 08/01/19 25 07/31/2024 CBC W/DIF F MCH 22.6 pg 27.0-3 4.0 low Not Available [facility] (Lab) [address], [place], [address], 08/01/2024 06:51:45 08/01/19 25 07/31/2024 CBC W/DIF F MCHC 29.1 g/dL 32.0-3 5.5 low Not Available [facility] (Lab) [address], [place], [address], 08/01/2024 06:51:45 08/01/19 25 07/31/2024 CBC W/DIF F RDW 17.2 % 11.0-1 5.0 high Not Available [facility] (Lab) [address] [facility], [place], [address], 08/01/2024 06:51:45 08/01/19 25 07/31/2024 CBC W/DIF F plt 279 10'3/ uL 150-40 0 Not Available [facility] (Lab) [address], [place], [address], 08/01/2024 06:51:45 08/01/19 25 07/31/2024 CBC W/DIF F MPV 13.0 fL 8.8-12 .1 high Not Available [facility] (Lab) [address] [place], [address], 08/01/2024 06:51:45 08/01/19 25 07/31/2024 CBC W/DIF F neutrophils 59.9 % 34.0-7 3.0 Not Available [facility] (Lab) [address] [place], [address], 08/01/2024 06:51:45 08/01/19 25 07/31/2024 CBC W/DIF F lymphocytes 32.3 % 15.0-5 0.0 Not Available [facility] (Lab) [address] [place], [address], 08/01/2024 06:51:45 08/01/19 25 07/31/2024 CBC W/DIF F monocytes 5.0 % 1.0-15 .0 Not Available [facility] (Lab) [address] [facility], [place], [address], 08/01/2024 06:51:45 08/01/19 25 07/31/2024 CBC W/DIF F eosinophils 2.3 % 0.0-8. 0 Not Available [facility] (Lab) [address] [facility], [place], [address], 08/01/2024 06:51:45 08/01/19 25 07/31/2024 CBC W/DIF F basophils 0.2 % 0.0-2. 0 Not Available [facility] (Lab) [address] [facility], [place], [address], 08/01/2024 06:51:45 08/01/19 25 07/31/2024 CBC W/DIF F immature granulocytes 0.3 % no define d refere nce range Immat ure Granu locyt es (IG) repre sents autom ated enume ratio n of Metam yeloc ytes, Myelo cytes and Promy elocy dagoberto when IG is < 5%. Blast s are not inclu ded in IG and repor donna separ ately if prese nt. Not Available [facility] (Lab) [address], [place], [address], 08/01/2024 06:51:45 08/01/19 25 07/31/2024 CBC W/DIF F absolute neutrophils 6.2 10'3/ uL 1.5-8. 0 Not Available [facility] (Lab) [address] [facility], [place], [address], 08/01/2024 06:51:45 08/01/19 25 07/31/2024 CBC W/DIF F absolute lymphocytes 3.4 10'3/ uL 1.0-4. 0 Not Available [facility] (Lab) [address] [place], [address], 08/01/2024 06:51:45 08/01/19 25 07/31/2024 CBC W/DIF F absolute monocytes 0.5 10'3/ uL 0.2-1. 0 Not Available [facility] (Lab) [address] [facility], [place], [address], 08/01/2024 06:51:45 08/01/19 25 07/31/2024 CBC W/DIF F absolute eosinophils 0.2 10'3/ uL 0.0-0. 6 Not Available [facility] (Lab) [address], [place], [address], 08/01/2024 06:51:45 08/01/19 25 07/31/2024 CBC W/DIF F absolute basophils 0.0 10'3/ uL 0.0-0. 3 Not Available [facility] (Lab) [address] [place], [address], 08/01/2024 06:51:45 08/01/19 25 07/31/2024 CBC W/DIF F absolute immature granulocytes 0.0 10'3/ uL 0.00-0 .10 Refer ence range s for nonbi nary/ inter sex or unspe cifie d gende r patie nts have not been estab lishe d. Zurdo e refer to the lindsayo wing table for range s estab lishe d for cisge nder patie nts and evalu ate in the clini aury maxim xt of the indiv idual patie nt: https ://lennox izquierdo book. nm.or g/gen derx Not Available [facility] (Lab) [address] [facility], [place], [address], 08/01/2024 06:51:45 08/01/19 25 07/31/2024 URIC ACID uric acid 5.8 mg/dL 2.3-6. 6 Not Available [facility] (Lab) [address] [facility], [place], [address], 08/01/2024 06:51:46 08/01/19 25 07/31/2024 CMP(C OMPRE HENSI VE METAB OLIC PANEL ) sodium 135 mmol/ L 133-14 6 Not Available [facility] (Lab) [address] [facility], [place], [address], 08/01/2024 06:51:46 08/01/19 25 07/31/2024 CMP(C OMPRE HENSI VE METAB OLIC PANEL ) potassium 4.1 mmol/ L 3.5-5. 1 Not Available [facility] (Lab) [address] [facility], [place], [address], 08/01/2024 06:51:46 08/01/19 25 07/31/2024 CMP(C OMPRE HENSI VE METAB OLIC PANEL ) chloride 105 mmol/ L 98-107 Not Available [facility] (Lab) [address] [facility], [place], [address], 08/01/2024 06:51:46 08/01/19 25 07/31/2024 CMP(C OMPRE HENSI VE METAB OLIC PANEL ) carbon dioxide 23 mmol/ L 21-31 Not Available [facility] (Lab) [address] [facility], [place], [address], 08/01/2024 06:51:46 08/01/19 25 07/31/2024 CMP(C OMPRE HENSI VE METAB OLIC PANEL ) anion gap 7 mmol/ L 4-13 Not Available [facility] (Lab) [address] [place], [address], 08/01/2024 06:51:46 08/01/19 25 07/31/2024 CMP(C OMPRE HENSI VE METAB OLIC PANEL ) blood urea nitrogen 10 mg/dL 7-25 Not Available [facility] (Lab) [address] [facility] [address], [place], [address], 08/01/2024 06:51:46 08/01/19 25 07/31/2024 CMP(C OMPRE HENSI VE METAB OLIC PANEL ) creatinine 0.69 mg/dL 0.60-1 .30 Not Available [facility] (Lab) [address] [facility], [place], [address], 08/01/2024 06:51:46 08/01/19 25 07/31/2024 CMP(C OMPRE HENSI VE METAB OLIC PANEL ) egfrcr (CKD-epi 2020) >90 mL/mi n/1.7 3_m2 >=60 Not Available [facility] (Lab) [address] [facility] [address], [place], [address], 08/01/2024 06:51:46 08/01/19 25 07/31/2024 CMP(C OMPRE HENSI VE METAB OLIC PANEL ) calcium 8.6 mg/dL 8.3-10 .5 Not Available [facility] (Lab) [address] [facility], [place], [address], 08/01/2024 06:51:46 08/01/19 25 07/31/2024 CMP(C OMPRE HENSI VE METAB OLIC PANEL ) glucose 66 mg/dL 70-100 low Not Available [facility] (Lab) [address] [place], [address], 08/01/2024 06:51:46 08/01/19 25 07/31/2024 CMP(C OMPRE HENSI VE METAB OLIC PANEL ) protein, total 6.3 g/dL 6.4-8. 3 low Not Available [facility] (Lab) [address] [place], [address], 08/01/2024 06:51:46 08/01/19 25 07/31/2024 CMP(C OMPRE HENSI VE METAB OLIC PANEL ) albumin 3.3 g/dL 3.5-5. 0 low Not Available [facility] (Lab) [address], [place], [address], 08/01/2024 06:51:46 08/01/19 25 07/31/2024 CMP(C OMPRE HENSI VE METAB OLIC PANEL ) ALT 11 units /L 9-43 Not Available [facility] (Lab) [address] [place], [address], 08/01/2024 06:51:46 08/01/19 25 07/31/2024 CMP(C OMPRE HENSI VE METAB OLIC PANEL ) alkaline phosphatase 103 units /L 34-104 Not Available [facility] (Lab) [address] [facility], [place], [address], 08/01/2024 06:51:46 08/01/19 25 07/31/2024 CMP(C OMPRE HENSI VE METAB OLIC PANEL ) AST 20 units /L 13-39 Not Available [facility] (Lab) [address] [facility], [place], [address], 08/01/2024 06:51:46 08/01/1907/31/2024 CMP(C OMPRE HENSI VE METAB OLIC PANEL ) bilirubin, total 0.2 mg/dL 0.2-1. 2 Not Available [facility] (Lab) [address] [facility], [place], [address], 08/01/2024 06:51:46 08/08/1908/07/2024 CBC W/DIF F WBC 11.1 10'3/ uL 3.5-10 .5 high Not Available [facility] (Lab) [address] [place], [address], 08/08/2024 04:54:34 08/08/1908/07/2024 CBC W/DIF F RBC 3.93 10'6/ uL (based on docume nted legal sex) 3.80-5 .20 Not Available [facility] (Lab) [address] [facility], [place], [address], 08/08/2024 04:54:34 08/08/19 25 08/07/2024 CBC W/DIF F HGB 9.1 g/dL (based on docume nted legal sex) 11.6-1 5.4 low Not Available [facility] (Lab) [address] [facility], [place], [address], 08/08/2024 04:54:34 08/08/19 25 08/07/2024 CBC W/DIF F HCT 31.0 % (based on docume nted legal sex) 34.0-4 5.0 low Not Available [facility] (Lab) [address] [facility], [place], [address], 08/08/2024 04:54:34 08/08/19 25 08/07/2024 CBC W/DIF F MCV 78.9 fL 80.0-9 9.0 low Not Available [facility] (Lab) [address] [facility], [place], [address], 08/08/2024 04:54:34 08/08/19 25 08/07/2024 CBC W/DIF F MCH 23.2 pg 27.0-3 4.0 low Not Available [facility] (Lab) [address], [place], [address], 08/08/2024 04:54:34 08/08/19 25 08/07/2024 CBC W/DIF F MCHC 29.4 g/dL 32.0-3 5.5 low Not Available [facility] (Lab) [address] [facility], [place], [address], 08/08/2024 04:54:34 08/08/19 25 08/07/2024 CBC W/DIF F RDW 20.0 % 11.0-1 5.0 high Not Available [facility] (Lab) [address] [facility], [place], [address], 08/08/2024 04:54:34 08/08/19 25 08/07/2024 CBC W/DIF F plt 267 10'3/ uL 150-40 0 Not Available [facility] (Lab) [address], [place], [address], 08/08/2024 04:54:34 08/08/19 25 08/07/2024 CBC W/DIF F MPV 12.6 fL 8.8-12 .1 high Not Available [facility] (Lab) [address], [place], [address], 08/08/2024 04:54:34 08/08/19 25 08/07/2024 CBC W/DIF F neutrophils 64.9 % 34.0-7 3.0 Not Available [facility] (Lab) [address], [place], [address], 08/08/2024 04:54:34 08/08/19 25 08/07/2024 CBC W/DIF F lymphocytes 26.9 % 15.0-5 0.0 Not Available [facility] (Lab) [address] [facility], [place], [address], 08/08/2024 04:54:34 08/08/19 25 08/07/2024 CBC W/DIF F monocytes 5.0 % 1.0-15 .0 Not Available [facility] (Lab) [address], [place], [address], 08/08/2024 04:54:34 08/08/19 25 08/07/2024 CBC W/DIF F eosinophils 2.5 % 0.0-8. 0 Not Available [facility] (Lab) [address] [facility], [place], [address], 08/08/2024 04:54:34 08/08/19 25 08/07/2024 CBC W/DIF F basophils 0.4 % 0.0-2. 0 Not Available [facility] (Lab) [address] [facility], [place], [address], 08/08/2024 04:54:34 08/08/19 25 08/07/2024 CBC W/DIF F immature granulocytes 0.3 % no define d refere nce range Immat ure Granu locyt es (IG) repre sents autom ated enume ratio n of Metam yeloc ytes, Myelo cytes and Promy elocy dagoberto when IG is < 5%. Blast s are not inclu ded in IG and repor donna separ ately if prese nt. Not Available [facility] (Lab) [address] [facility], [place], [address], 08/08/2024 04:54:34 08/08/19 25 08/07/2024 CBC W/DIF F absolute neutrophils 7.2 10'3/ uL 1.5-8. 0 Not Available [facility] (Lab) [address] [facility], [place], [address], 08/08/2024 04:54:34 08/08/19 25 08/07/2024 CBC W/DIF F absolute lymphocytes 3.0 10'3/ uL 1.0-4. 0 Not Available [facility] (Lab) [address] [facility], [place], [address], 08/08/2024 04:54:34 08/08/19 25 08/07/2024 CBC W/DIF F absolute monocytes 0.6 10'3/ uL 0.2-1. 0 Not Available [facility] (Lab) [address] [facility], [place], [address], 08/08/2024 04:54:34 08/08/19 25 08/07/2024 CBC W/DIF F absolute eosinophils 0.3 10'3/ uL 0.0-0. 6 Not Available [facility] (Lab) [address] [facility], [place], [address], 08/08/2024 04:54:34 08/08/19 25 08/07/2024 CBC W/DIF F absolute basophils 0.0 10'3/ uL 0.0-0. 3 Not Available [facility] (Lab) [address], [place], [address], 08/08/2024 04:54:34 08/08/19 25 08/07/2024 CBC W/DIF F absolute immature granulocytes 0.0 10'3/ uL 0.00-0 .10 Refer ence range s for nonbi nary/ inter sex or unspe cifie d gende r patie nts have not been estab lishe d. Zurdo e refer to the christ wing table for range s estab lishe d for cisge nder patie nts and evalu ate in the clini aury maxim xt of the indiv idual patie nt: https ://lennox izquierdo book. nm.or g/gen derx Not Available [facility] (Lab) [address] , [place], [address], 08/08/2024 04:54:34 08/08/19 25 08/07/2024 PROTE IN/CR EATIN INE RATIO , URINE creatinine, urine 165.9 mg/dL R-No refer ence range estab lishe d for this assay Not Available [facility] (Lab) [address] [facility], [place], [address], 08/08/2024 04:54:34 08/08/19 25 08/07/2024 PROTE IN/CR EATIN INE RATIO , URINE protein, urine 100 mg/dL R-No refer ence range estab lishe d for this assay Not Available [facility] (Lab) [address] [facility], [place], [address], 08/08/2024 04:54:34 08/08/19 25 08/07/2024 PROTE IN/CR EATIN INE RATIO , URINE protein/crea tinine ratio, urine 0.60 . No Refer ence Range avail able for Rando m Urine s. A prote in to creat inine ratio of >=0.1 9 is a good predi ctor of signi fican t prote inuri a. A level of <0.14 can rule out signi fican t prote inuri a. Not Available [facility] (Lab) [address] [facility], [place], [address], 08/08/2024 04:54:34 08/08/19 25 08/07/2024 URIC ACID uric acid 6.0 mg/dL 2.3-6. 6 Not Available [facility] (Lab) [address] [facility], [place], [address], 08/08/2024 04:54:34 08/08/19 25 08/07/2024 CMP(C OMPRE HENSI VE METAB OLIC PANEL ) sodium 135 mmol/ L 133-14 6 Not Available [facility] (Lab) [address] [facility], [place], [address], 08/08/2024 04:54:35 08/08/19 25 08/07/2024 CMP(C OMPRE HENSI VE METAB OLIC PANEL ) potassium 4.5 mmol/ L 3.5-5. 1 Not Available [facility] (Lab) [address] [facility], [place], [address], 08/08/2024 04:54:35 08/08/19 25 08/07/2024 CMP(C OMPRE HENSI VE METAB OLIC PANEL ) chloride 105 mmol/ L 98-107 Not Available [facility] (Lab) [address] [facility], [place], [address], 08/08/2024 04:54:35 08/08/19 25 08/07/2024 CMP(C OMPRE HENSI VE METAB OLIC PANEL ) carbon dioxide 21 mmol/ L 21-31 Not Available [facility] (Lab) [address] [facility], [place], [address], 08/08/2024 04:54:35 08/08/19 25 08/07/2024 CMP(C OMPRE HENSI VE METAB OLIC PANEL ) anion gap 9 mmol/ L 4-13 Not Available [facility] (Lab) [address] [place], [address], 08/08/2024 04:54:35 08/08/19 25 08/07/2024 CMP(C OMPRE HENSI VE METAB OLIC PANEL ) blood urea nitrogen 14 mg/dL 7-25 Not Available [facility] (Lab) [address] [facility], [place], [address], 08/08/2024 04:54:35 08/08/19 25 08/07/2024 CMP(C OMPRE HENSI VE METAB OLIC PANEL ) creatinine 0.70 mg/dL 0.60-1 .30 Not Available [facility] (Lab) [address] [facility], [place], [address], 08/08/2024 04:54:35 08/08/19 25 08/07/2024 CMP(C OMPRE HENSI VE METAB OLIC PANEL ) egfrcr (CKD-epi 2020) >90 mL/mi n/1.7 3_m2 >=60 Not Available [facility] (Lab) [address] [facility], [place], [address], 08/08/2024 04:54:35 08/08/19 25 08/07/2024 CMP(C OMPRE HENSI VE METAB OLIC PANEL ) calcium 9.3 mg/dL 8.3-10 .5 Not Available [facility] (Lab) [address] [facility], [place], [address], 08/08/2024 04:54:35 08/08/19 25 08/07/2024 CMP(C OMPRE HENSI VE METAB OLIC PANEL ) glucose 60 mg/dL 70-100 low Not Available [facility] (Lab) [address] [facility], [place], [address], 08/08/2024 04:54:35 08/08/19 25 08/07/2024 CMP(C OMPRE HENSI VE METAB OLIC PANEL ) protein, total 6.2 g/dL 6.4-8. 3 low Not Available [facility] (Lab) [address] [facility], [place], [address], 08/08/2024 04:54:35 08/08/19 25 08/07/2024 CMP(C OMPRE HENSI VE METAB OLIC PANEL ) albumin 3.4 g/dL 3.5-5. 0 low Not Available [facility] (Lab) [address] [facility], [place], [address], 08/08/2024 04:54:35 08/08/19 25 08/07/2024 CMP(C OMPRE HENSI VE METAB OLIC PANEL ) ALT 12 units /L 9-43 Not Available [facility] (Lab) [address] [facility], [place], [address], 08/08/2024 04:54:35 08/08/19 25 08/07/2024 CMP(C OMPRE HENSI VE METAB OLIC PANEL ) alkaline phosphatase 110 units /L 34-104 high Not Available [facility] (Lab) [address] [facility], [place], [address], 08/08/2024 04:54:35 08/08/19 25 08/07/2024 CMP(C OMPRE HENSI VE METAB OLIC PANEL ) AST 20 units /L 13-39 Not Available [facility] (Lab) [address] [facility], [place], [address], 08/08/2024 04:54:35 08/08/19 25 08/07/2024 CMP(C OMPRE HENSI VE METAB OLIC PANEL ) bilirubin, total 0.3 mg/dL 0.2-1. 2 Not Available [facility] (Lab) [address] [facility], [place], [address], 08/08/2024 04:54:35 08/01/19 25 07/31/2024 non-s tress test No observ ation record ed. [place] [address], [place], [address], 07/31/2024 17:45:58 08/01/19 25 07/31/2024 US, obste tric, follo w-up No observ ation record ed. [email or web address] [place] [address], [place], [address], 08/01/2024 18:42:07 08/01/19 25 08/01/2024 US, obste tric, bioph ysica l profi le + non-s tress test No observ ation record ed. [email or web address] [place] [address], [place], [address], 08/01/2024 18:42:17 08/01/19 25 07/31/2024 US, obste tric, follo w-up No observ ation record ed. [place] [id number], [place], [address], 08/02/2024 00:19:04 08/05/19 25 08/03/2024 non-s tress test No observ ation record ed. [email or web address] [place] [address], [place], [address], 08/04/2024 14:11:54 08/05/1908/03/2024 non-s tress test No observ ation record ed. [email or web address] [place] [address], [place], [address], 08/04/2024 14:13:38 08/08/19 25 08/07/2024 US, obste tric, bioph ysica l profi le + non-s tress test No observ ation record ed. [email or web address] [place] [address], [place], [address], 08/07/2024 17:59:43 08/08/19 25 08/07/2024 US, obste tric, bioph ysica l profi le + non-s tress test No observ ation record ed. [email or web address] [address], [place], [address], 08/07/2024 21:56:46 08/08/19 25 08/07/2024 non-s tress test No observ ation record ed. [email or web address] [place] [address], [place], [address], 08/07/2024 17:37:11 08/08/19 non-s tress test No observ ation record ed. [email or web address] [place] [address], [place], [address], 08/07/2024 17:39:07 08/10/19 25 08/09/2024 imagi ng/di agnos tic resul t No observ ation record ed. [facility] [address], [place], [address], 08/10/2024 09:34:05 08/10/19 25 08/09/2024 imagi ng/di agnos tic resul t No observ ation record ed. [facility] [address], [place], [address], 08/10/2024 09:34:05 08/11/19 25 08/10/2024 non-s tress test No observ ation record ed. [email or web address] [place] [address], [place], [address], 08/10/2024 17:01:18 Result Notes None recorded. Problems Name Problem SNOMED Code Status Onset Date Resolution Date Notes Provider Name and Address Organization Details Recorded Time SNOMED CT Concept Completed 201503/16/2021 Encntr for pot builder exam (general ) (routine ) w/o abn findings ;Practic e ID: [id number] Taty wolfe [facility] 16:02:[address] Concept Completed 201803/16/2021 Encntr for general adult medical exam w/o abnormal findings ;Practic e ID: [id number] Taty wolfe [facility] 1 16:02:05 Abnormal uterine bleeding [id number] 9100 Completed 201503/16/2021 Dysfunct ional uterine bleeding ;Recorde d Elsewher e: No Locat ion: [place] roa [facility] S ource: EHR Individualized Education Plan Aide alejandra: N Practi ce ID: 0001 Juan Pablo lable Time: 08:15:00 AM Taty Dar null, [facility] 1 16:02:04 Pregnanc y 61383446 Active 2023 Sherly Xiomara null, [facility] 4 14:09:37 IVF - in-vitro fertiliz ation pregnanc y 4840200729 2101 Active 2023 faxed echo order 18 [facility] schedule d 3/13 echo Itzel Esparza null, [facility] 5 11:58:46 IVF - in-vitro fertiliz ation pregnanc y 6037891835 2101 Active 2023 faxed echo order [facility] schedule d 3/13 echo Itzel Esparza null, [facility] 5 11:58:46 Advanced maternal age 181975725 Active 2023 RAJ VINES MD [address], [place], [address], [facility] 4 14:34:43 Advanced maternal age 317410004 Active 2023 RAJ VINES MD [address], [place], [address], [facility] 4 14:34:43 Pregnanc y-induce d hyperten sunday 67222510 Active 2024 MFM referral faxed [facility] 08/07/24 Itzel Esparza null, [facility] 5 18:45:46 Pregnanc y-induce d hyperten sunday 00178961 Active 2024 MFM referral faxed [facility] 08/07/24 Itzel wolfe [facility] 5 18:45:46 Proteinu leeroy 45074720 Active Itzel wolfe [facility] 5 14:46:48 Anemia 644117870 Active Hgb 9.1 Iron infusion order faxed 08/10 - refaxed 08/13 [facility] 5 10:55:43 Anemia 206104272 Active Hgb 9.1 Iron infusion order faxed 08/10 - refaxed 08/13 Itzel wolfe [facility] 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 5 12:07:41 Notes:boardline preeclampsia Problem Notes None recorded. Procedures Surgical History Date Name Laterality Status Provider Name and Address Organization Details Recorded Time 02/02/20 24 Embryo transfer intrauterine completed Leatha Martin [facility] 08/04/2024 14:07:31 11/28/19 24 Hysteroscopy completed Leatha Martin [facility] 08/04/2024 14:06:37 10/29/19 24 in vitro fertilization using donor spermatozoa completed Leatha Martin [facility] 08/04/2024 14:07:56 08/29/19 24 intrauterine artificial insemination completed Leatha Martin [facility] 08/04/2024 14:07:12 07/29/19 24 intrauterine artificial insemination completed Leatha Martin [facility] 08/04/2024 14:07:06 04/29/20 23 [facility] 08/04/2024 14:07:02 03/30/20 23 intrauterine artificial insemination completed Leathablayne Martin [facility] 08/04/2024 14:06:53 03/17/20 21 Date of Last Pap Smear completed Leathablayne Martin [facility] 07/21/2022 12:49:48 03/17/20 20 Date of Last Mammogram completed Taty Dodge [facility] 03/16/2021 16:03:11 05/30/19 18 endoscopy completed [facility] 07/21/2022 12:51:17 05/30/19 15 extraction of wisdom tooth completed [facility] 07/21/2022 12:51:07 05/30/18 93 Appendectomy completed [facility] 07/21/2022 12:51:45 Imaging Results Imaging Date Name Status LastModified by Organiz ation Details LastModified Time 07/31/2024 non-stress test completed [email or web address] [place] [address], [place], [address], 07/31/2024 17:45:58 07/31/2024 US, obstetric, follow-up completed [email or web address] [place] [address], [place], [address], 08/01/2024 18:42:07 08/01/2024 US, obstetric, biophysical profile + non-stress test completed [email or web address] [place] [address], [place], [address], 08/01/2024 18:42:17 07/31/2024 US, obstetric, follow-up completed [address], [place], [address], 08/02/2024 00:19:04 08/03/2024 non-stress test completed [email or web address] [place] [address], [place], [address], 08/04/2024 14:11:54 08/03/2024 non-stress test completed [email or web address] [place] [address], [place], [address], 08/04/2024 14:13:38 08/07/2024 US, obstetric, biophysical profile + non-stress test completed [email or web address] [place] [address], [place], [address], 08/07/2024 17:59:43 08/07/2024 US, obstetric, biophysical profile + non-stress test completed [email or web address] [address], [place], [address], 08/07/2024 21:56:46 08/07/2024 non-stress test active [email or web address] [place] [address] [address], [place], [address], 08/07/2024 17:37:11 08/07/2024 non-stress test completed [email or web address] [place] [address], [place], [address], 08/07/2024 17:39:07 08/09/2024 imaging/diagnos tic result completed [facility] [address], [place], [address], 08/10/2024 09:34:05 08/09/2024 imaging/diagnos tic result completed [facility] [address], [place], [address], 08/10/2024 09:34:05 08/10/2024 non-stress test completed [email or web address] [place] [address], [place], [address], 08/10/2024 17:01:18 Procedure Notes None recorded. Medical Equipment None Reported. Allergies No known drug allergies Medications Name Sig Start Date Stop Date Status Note LastModified by Organization Details LastModified Time Prescript ion - Renewal 03/16 completed Not Available Not Available Not Available fed-ex priority overnight TUE-11/07- PT SIG REQ DECLINED COUNSELI PATRICIA STEPHANIE G 04/02 completed Not Available Not Available Not Available fed-ex next am TUE- PT HOME WITH SIG - GD 04/02 completed Not Available Not Available Not Available progester one (micro) 200mg supp INSERT 1 SUPPOSIT ORY VAGINALL Y TWICE DAILY DIRECTED . DO NOT START UNTIL INSTRUCT ED active Not Available Not Available No t Available rfc menopur 75iu inj INJECT 75 IU (1 VIAL) SUBCUTAN EOUSLY ONCE DAILY DIRECTED 04/02 completed Not Available Not Available Not Available h.c.g trigger 6500units /ml INJECT 6500 SUBCUTAN EOUSLY SINGLE DOSE DIRECTED TRIGGER WHEN INSTRUCT ED 04/02 completed Not Available Not Available Not Available sharp container USE TO DISPOSE OF NEEDLES 04/02 completed Not Available Not Available Not Available fed-ex tuesday $9.99 02/16-01/29 1 tue-tue no sig DECLINED COUNSELI NG ac' 04/02 completed Not Available Not Available Not Available leuprolid e [trigger] 4mg/0.8ml (0.8ml/vi al) INJECT 0.4ML (40 UNITS) SUBCUTAN EOUSLY EVERY 12 HOURS DIRECTED 04/02 completed Not Available Not Available Not Available fed-exsta ndard overnight $15 TUE- PT NO SIG REQ AH DECLINED COUNSELI NG 04/02 completed Not Available Not Available Not Available follistim pen kit USE DIRECTED [FOLLIST IM MEDICATI ON] 04/02 completed Not Available Not Available Not Available BD Regular Bevel [place] 27 gauge x 1/2 USE DIRECTED [MENOPUR MEDICATI ON] INJECT SUBCUTAN EOUSLY 04/02 completed Not Available Not Available Not Available amoxicill in 500 mg capsule TAKE 1 CAPSULE BY MOUTH THREE TIMES A DAY UNTIL FINISHED 03/28 completed Not Available Not Available Not Available Unithroid 88 mcg tablet TAKE 1 TABLET BY MOUTH EVERY DAY IN THE MORNING active Not Available Not Available No t Available Apri 0.15 mg-0.03 mg tablet TAKE 1 TABLET BY MOUTH EVERY DAY 07/21 completed Not Available Not Available Not Available azithromy otf 250 mg tablet TAKE 2 TABLETS BY MOUTH TODAY, THEN TAKE 1 TABLET DAILY FOR 4 DAYS DIRECTED 03/28 completed Not Available Not Available Not Available hydrocodo ne 5 mg-acetam inophen 325 mg tablet TAKE 1 OR 2 TABLETS BY MOUTH EVERY 6 HOURS NEEDED FOR PAIN 04/02 completed Not Available Not Available Not Available Pregnyl 10,000 unit intramusc ular solution INJECT 10,000 UNITS INTRAMUS CULARLY ONCE FOR ONE DOSE DIRECTED 04/02 completed Not Available Not Available Not Available penicilli n V potassium 500 mg tablet TK 2 STAT THEN 1 T PO Q 6 H TAT 03/16 completed Not Available Not Available Not Available Zyrtec 10 mg tablet active Not Available Not Available No t Available ondansetr on 8 mg disintegr ating tablet Place 1 tablet twice a day by translin gual route. active Not Available Not Available No t Available Unithroid 112 mcg tablet TAKE 1 TABLET BY MOUTH DAILY, AND 2 TABLETS ON TUESDAY, DAY TUESDAY active Not Available Not Available No t Available levothyro xine 100 mcg tablet PLEASE SEE ATTACHED FOR DETAILED DIRECTIO NS active Not Available Not Available No t Available progester one 50 mg/mL intramusc ular oil INJECT 2 ML INTRAMUS CULARLY ONCE DAILY DIRECTED active Not Available Not Available No t Available Synthroid 25 mcg tablet take 1 tablet by oral route every day 01/18 completed Prescrib sulema Paz e: No Locat ion: [place] roa [facility] odify By: maureen muñoz Encou nter DateTime : 11/17/19 16 03:33:08 PM Not Available Not Available Not Available Unithroid 50 mcg tablet TAKE 1 TABLET EVERY OTHER DAY BY ORAL ROUTE IN THE MORNING FOR 90 DAYS. 03/28 completed Not Available Not Available Not Available cyanocoba gumaro (vit B-12) 1,000 mcg/mL injection solution INJECT 1 ML EVERY WEEK BY SUBCUTAN EOUS ROUTE IN THE MORNING FOR 90 DAYS. 03/28 completed Not Available Not Available Not Available estradiol 2 mg tablet TAKE 1 TABLET BY MOUTH THREE TIMES A DAY 04/02 completed Not Available Not Available Not Available BD Regular Bevel [place] 22 gauge x 1 1/2 USE DIRECTED [PROGEST ERONE MEDICATI ON] INJECT INTRAMUS CULARLY 04/02 completed Not Available Not Available Not Available diclofena c sodium 75 mg tablet,de layed release TAKE 1 TABLET BY MOUTH TWICE A DAY 07/21 completed Not Available Not Available Not Available monteluka st 10 mg tablet TAKE 1 TABLET BY MOUTH EVERY DAY 07/21 completed Not Available Not Available Not Available cefuroxim e axetil 500 mg tablet TAKE 1 TABLET BY MOUTH TWICE DAILY 03/16 completed Not Available Not Available Not Available letrozole 2.5 mg tablet TAKE 2 TABLET ORAL ONCE A DAY DIRECTED DO NOT START UNTIL INSTRUCT ED 04/02 completed Not Available Not Available Not Available Vitamin D2 1,250 mcg (50,000 unit) capsule take 1 capsule by oral route every week 01/18 completed Prescrib ed Elsewher e: No Locat ion: [place] roa [facility] M odify By: maureen muñoz Encou nter DateTime : 11/17/19 16 03:33:08 PM Not Available Not Available Not Available BD Luer-Juan Antonio Syringe 3 mL 18 x 1 1/2 USE DIRECTED [PROGEST ERONE MEDICATI ON] WITHDRAW 03/28 completed Not Available Not Available Not Available hydrocort isone 2.5 % topical ointment APPLY SPARINGL Y TO RASH BELOW EYE TWICE A DAY 07/21 completed Not Available Not Available Not Available ondansetr on 4 mg disintegr ating tablet PLEASE SEE ATTACHED FOR DETAILED DIRECTIO NS 04/02 completed Not Available Not Available Not Available sertralin e 50 mg tablet TAKE 1 TABLET BY MOUTH EVERY DAY active Not Available Not Available No t Available BD Luer-Juan Antonio Syringe 3 mL 22 x 1 1/2 USE DIRECTED [H.C.G. MEDICATI ON] MIX/ DRAW 04/02 completed Not Available Not Available Not Available Sure Comfort Insulin Syringe 1 mL 29 gauge x 1/2 USE DIRECTED [H.C.G. MEDICATI ON] 04/02 completed Not Available Not Available Not Available ganirelix 250 mcg/0.5 mL subcutane ous syringe INJECT 1 SYRINGE (250MCG) SUBCUTAN EOUSLY DAILY WHEN DIRECTED BY MD 04/02 completed Not Available Not Available Not Available Follistim AQ 300 unit/0.36 mL subcutane ous cartridge INJECT 75 SUBCUTAN EOUSLY EVERY OTHER DAY DIRECTED DO NO START UNTIL INSTRUCT ED 04/02 completed Not Available Not Available Not Available BD Regular Bevel [place] 25 gauge x 1 1/2 USE DIRECTED [H.C.G. MEDICATI ON] INJECT INTRAMUS CULARLY 04/02 completed Not Available Not Available Not Available Follistim AQ 900 unit/1.08 mL subcutane ous cartridge INJECT 300 IU SUBCUTAN EOUSLY ONCE DAILY DIRECTED 04/02 completed Not Available Not Available Not Available folic acid active Not Available Not Available Not Available Vitamin B-3 04/02 completed Not Available Not Available Not Available Vitamin active Not Available Not Available Not Available olopatadi ne 0.6 % nasal spray USE 2 SPRAYS TWICE A DAY. ADMINIST ER INTO EACH NOSTRIL 07/21 completed Not Available Not Available Not Available cholecalc iferol (vitamin D3) 50 mcg (2,000 unit) capsule TAKE 2 CAPSULES BY MOUTH EVERY MORNING active Not Available Not Available No t Available BD Insulin Syringe Ultra-Fin e 1 mL 31 gauge x 5/16 INJECT B12 SUBCUTAN EOUSLY ONCE WEEKLY X 90 DAYS 03/28 completed Not Available Not Available Not Available Acid Sheet Turner (omeprazo le) active Not Available Not Available Not Available Maribel 0.25 mg-0.035 mg tablet TAKE 1 TABLET BY MOUTH EVERY DAY 04/02 completed Not Available Not Available Not Available COVID-19 At-Home Test kit FOLLOW INSTRUCT IONS INCLUDED WITH THE PACKAGE. 04/02 completed Not Available Not Available Not Available Vitals Date Recorded Body height Body mass index (BMI) Body weight Systolic blood pressure Diastolic blood pressure Provider Name and Address Organization Details Last Updated DateTime 08/03/2024 162.56 cm 28.5 kg/m2 51496.33 g 151 mm[Hg] 94 mm[Hg] Leatha Martin [facility] 13:50:43 Date Recorded Body height Body mass index (BMI) Body weight Systolic blood pressure Diastolic blood pressure Provider Name and Address Organization Details Last Updated DateTime 08/07/2024 162.56 cm 28.5 kg/m2 73470.33 g 148 mm[Hg] 102 mm[Hg] Sherly Mansfield [facility] 16:09:35 Date Recorded Body height Body mass index (BMI) Body weight Systolic blood pressure Diastolic blood pressure Provider Name and Address Organization Details Last Updated DateTime 08/10/2024 162.56 cm 28.5 kg/m2 02531.33 g 144 mm[Hg] 89 mm[Hg] Sherly Xiomara [facility] 17:00:52 Social History Question Answer Notes LastModified by Organizat ion Details LastModified Time Tobacco Smoking Status Never Smoker Zina Philip [facility] 09/08/2022 12:26:41 Do You Have An Advance Directive? No Information n ot available 03/17/2021 What Is Your Level Of Alcohol Consumption? None [email or web address] Information not available 07/21/2022 How Many Years Have You Consumed Alcohol? 17 [email or web address] Information not available 07/21/2022 Are You Blind Or Do You Have Difficulty Seeing? No Information n ot available 03/16/2021 What Is Your Level Of Caffeine Consumption? Moderate Information not available 03/17/2021 How Much Tobacco Do You Chew? None Information not available 03/17/2021 In The 14 Days Before Symptom Onset, Have You Had Close Contact With A Laboratory-confirm ed COVID-19 While That Case Was Ill? No Information n ot available 03/17/2021 In The 14 Days Before Symptom Onset, Have You Had Close Contact With A Person Who Is Under Investigation For COVID-19 While That Person Was Ill? No Information not available 03/17/2021 Have You Been To An Area Known To Be High Risk For COVID-19? No Information not available 03/17/2021 Are You Deaf Or Do You Have Serious Difficulty Hearing? No Information not available 03/16/2021 What Type Of Diet Are You Following? REGULAR Information n ot available 03/16/2021 What Is The Highest Grade Or Level Of School You Have Completed Or The Highest Degree You Have Received? 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 Yes Information not available 03/17/2021 Do You Use Protection During Sex? No Information not available 03/17/2021 Do You Use Your Seat Belt Or Car Seat Routinely? Yes Information not available 03/16/2021 Do You Have Smoke And Carbon Monoxide Detectors In Your Home? Yes Information not available 03/16/2021 How Much Tobacco Do You Smoke? No Information not available 03/17/2021 Do You Feel Stressed (tense, Restless, Nervous, Or Anxious, Or Unable To Sleep At Night)? [id number] [email or web address] Information not available 07/21/2022 Do You Use Any Illicit Or Recreational Drugs? No Information not available 03/16/2021 Do You Use Sunscreen Routinely? Yes Information not available 03/16/2021 Have You Used IV Drugs? No Information not available 03/17/2021 Sex: Unknown Functional Status Question Answer Note LastModified by Organizat ion Details LastModified Time Do you have difficulty walking or climbing stairs? No [email or web address] Information not available 09/08/2022 Are you able to walk? YESWOREST Information not available 03/16/2021 Are you able to care for yourself? Yes Information not available 09/08/2022 Do you have difficulty dressing or bathing? No [email or web address] Information not available 09/08/2022 What is your exercise level? Occasional Information not available 03/16/2021 Mental Status None recorded. Family History Relationship Description Onset Age of this Age Resolved Age Notes LastModified by Organization Details LastModified Time Mother Hypertensive disorder [email or web address] Not available 2023 14:53:18 Father Hypertensive disorder Not available 2023 14:53:18 Father Hypercholest [email or web address] Not available 2023 14:53:18 Father Heart disease [email or web address] Not available 2023 14:53:18 Father Malignant tumor of pharynx Not available 2023 14:53:18 Paternal Grandmother Carcinoma in situ of stomach [email or web address] Not available 2023 14:53:18 Paternal Grandmother Malignant tumor of colon [email or web address] Not available 2023 14:53:18 Medical History Condition Response Allergies (Food, seasonal, environmental ) N Other Y Breast Cancer N Drug/Latex Allergies/Reactions N Blood Transfusion N Dermatologic Disorders N Lung Disease N Defects or Inherited Disease N Breast Problem N Gestational Diabetes N Hematologic disorders N Anesthesia Complications N History of STI N Deep Vein Thrombosis N Polycystic ovary syndrome N Anxiety Disorder Y Autoimmune disease N Arthritis N Infertility Y Polyps N Acid Reflux (GERD) N History of abnormal pap N Cancer N Stroke N Varicosities N Neurologic/Epilepsy Y Endometriosis N High Cholesterol N Headaches N Fibromyalgia N Kidney Disease N Heart Problems N Kidney or Bladder Problems N Thyroid Problems N GI Problems N Eating Disorder N Anemia N Art (IVF or FET) Y Psychiatric Illness N Ovarian Cancer N Diabetes N Pulmonary (TB, Asthma) N Hepatitis/Liver Disease N No Past Medical History N Eczema N Urinary Tract Infection N Abuse/Domestic Violence N Asthma N Trauma/Violence N Depression/ depression Y Heart Disease N Pre-Eclampsia Y Hypertension Y Osteoporosis N Thrombophilias N Gynecological History Statement/Question Response Date of Last Mammogram 03/17/2020 Flow [place] Date of LMP 12/02/2023 On BCP's at Conception? N N Was last menstrual period normal Y STIs/STDs N HPV Vaccine N Duration of Flow (days) 4 11 Current Control Method None Frequency of Cycle (Q days) 28 Sexually Active? Y None Menses Monthly Y Age of first menstrual cycle 9 Date of Last Pap Smear 03/17/2021 Sexual Problems? N Desired Control Method None LMP Unknown N Obstetrics History GPAL:G 1 P 0 0 0 0 Past Encounters Encounter ID Performer Location Encounter Start Date Encounter Closed Date Diagnosis/Indication Diagnosis SNOMED-CT Code Diagnosis ICD10 Code Diagnosis Note [id number] Ling Wallace , [facility] [address] [address] 03/14/2020 10:09:02 03/14/2020 12:28:52 Gynecologic examination 21406709 Z01.419 Take Calcium with Vitamin D 1200mg daily if not receiving in daily diet. It is strongly advised to have an annual flu shot and up can obtain at most pharmacies . If you have not had a TDap shot in the last 10 years you should obtain one as well. Discussed with patient & provided with informatio n regarding Gardisil vaccine to prevent the 4 strains for HPV that cause cervical cancer if under age 26. Encourage safe sexual practices, to use condoms and limit partners if not already in a monogamous relationsh ip. Do monthly self breast exams. Have mammogram yearly or every other year depending on family history. BRCA testing is now available for patients with strong genetic history of female cancer. If interested contact the office. Engage in daily exercise of low impact aerobic exercise 45-60 minutes 4-5 times weekly. Avoid tobacco and illicit drugs as well as using moderation with alcohol intake less than 1-2 8 oz beverages daily. This lifestyle behavior pattern will lead to less health conditions and longer life span. If BMI greater than 25 weight watchers or dietary consult advised. Patient received above instructio ns, and questions have been answered. If you have any questions please call or respond to this email. Patient was made aware of the patient portal and may obtain a paper copy of today's plan if desired. Monogamous relationsh ip x 6yrs Norm pap hx Opts to do pap/hpv this year; if neg consider defer pap/hpv next year per asccp unless otherwise indicated. Happy on her control. RF sent Pain in axilla [id number] M79.629 Bilateral axilla pain traveling down through tail of [place]. Has been present since May 2019. There daily. No changes with onset of cycle. Agreed to do labs & imaging. Bilateral knee pain [id number] M25.561 M25.562 Going on for past couple of years. would like to have this issue checked out as it is starting to get worse. Ref placed. [id number] Ling Wallace , [facility] [address] [address] 03/17/2021 10:03:52 03/17/2021 10:53:21 Gynecologic examination [id number] Z01.419 Take Calcium with Vitamin D 1200mg daily if not receiving in daily diet. It is strongly advised to have an annual flu shot and up can obtain at most pharmacies . If you have not had a TDap shot in the last 10 years you should obtain one as well. Discussed with patient & provided with informatio n regarding Gardisil vaccine to prevent the 4 strains for HPV that cause cervical cancer if under age 26. Encourage safe sexual practices, to use condoms and limit partners if not already in a monogamous relationsh ip. Do monthly self breast exams. Have mammogram yearly or every other year depending on family history. BRCA testing is now available for patients with strong genetic history of female cancer. If interested contact the office. Engage in daily exercise of low impact aerobic exercise 45-60 minutes 4-5 times weekly. Avoid tobacco and illicit drugs as well as using moderation with alcohol intake less than 1-2 8 oz beverages daily. This lifestyle behavior pattern will lead to less health conditions and longer life span. If BMI greater than 25 weight watchers or dietary consult advised. Patient received above instructio ns, and questions have been answered. If you have any questions please call or respond to this email. Patient was made aware of the patient portal and may obtain a paper copy of today's plan if desired. Monogamous relationsh ip x 6yrs (Same sex partner)ST D screen declined Norm pap hx Opts to do pap/hpv this year; if neg consider defer pap/hpv next year per asccp unless otherwise indicated. Happy on her control. RF sent Occasional breast tenderness bilaterall y--Rec Evening primrose oil daily Contracept ion care management [id number] Z30.9 Happy on OCPRF sent Family his tory of cancer of colon 073737184 Z80.0 Discussed invitae genetic cancer screeningW ill considerAw are we can draw this here.Anastasiageorgina te given for more informatio n [id number] [facility] [address],[place] [address] 07/21/2022 12:15:07 07/21/2022 14:02:50 Trying to conceive [id number] Z31.9 pt will research sperm cagle, discussed COST, ran benefitsre viewed letrozole se risks and benefits including ovarian hyperstimu lation , possible multiple gestation, will let me know if ready to start IUI, all handouts given [id number] [facility] [address],[place] [address] 09/08/2022 12:26:24 09/08/2022 13:20:09 Trying to conceive [id number] Z31.9 Hypothyroidism 53489115 E03.[address] treadwell at the end of this month, when thyroid stabilized plan letrozole, IUI in officeplea se call with any questions or concerns [id number] RAJ VINES MD [facility] [address],[place] [address] 03/28/2024 14:36:56 03/28/2024 15:43:12 screening 307373755 Z36.0 Hypothyroidism 86243941 E03.9 test positive 210162212 Z32.01 1. Exam today within normal limits.2. Ultrasound today confirms GA and viability. EDC3. GC/Clamydi a testing done: will f/u as indicated. 4. ACOG guidelines and plan of care for reviewed with patient. All questions answered.5 . Return to office at 12 weeks for new OB visit6. Will need new OB labs, ordered.7. Genetic screening: ordered. [id number] Neema Dodge [facility] [address],[place] [address] 04/09/2024 15:25:30 04/09/2024 16:39:59 screening [id number] Z36.82 Z3A.12 [id number] RAJ VINES MD [facility] [address],[place] [address] 05/01/2024 14:01:09 05/01/2024 14:35:46 Advanced maternal age 300274477 O09.512 IVF - in-v itro fertilization [id number] 2102 O09.819 Gestation period, 15 weeks 0682582 Z3A.15 [id number] Estela Cotton [facility] [address],[place] [address] 05/31/2024 15:02:03 05/31/2024 16:23:18 screening for malformation 029982886 Z36.3 O09.812 Z3A.19 [id number] RAJ VINES MD [facility] [address],[place] [address] 05/31/2024 15:02:26 05/31/2024 16:51:17 Nausea and vomiting 33290236 R11.2 Advanced m aternal age 705193871 O09.512 IVF - in-v itro fertilization 2753548889 2 O09.819 Gestation period, 19 weeks 67427611 Z3A.19 [id number] RAJ VINES MD [facility] [address],[place] [address] 06/26/2024 15:58:07 06/26/2024 16:32:11 Advanced maternal age 507398986 O09.512 IVF - in-v itro fertilization 7941945727 2 O09.819 Gestation period, 23 weeks 36555864 Z3A.23 [id number] RAJ VINES MD [facility] [address],[place] [address] 07/25/2024 09:49:36 07/27/2024 07:42:44 -induced hypertension 73239948 O13.9 - gestationa l HTN diagnosed at 27 weeks- on bASA ppx since 12 weeks- BPs 140s-150s/ 80s-90s- will initiate twice weekly testing, weekly labs- plan for delivery at 37 weeks- continue to monitor for progressio n to preeclamps ia IVF - in-v itro fertilization 6335683639 2102 O09.819 - echo order sent Advanced m aternal age 063119144 O09.512 Gestation period, 27 weeks 35186804 Z3A.27 - continue PNV [id number] YOHANNES Ferrell [facility] [address],[place] [address] 07/31/2024 16:44:31 07/31/2024 17:49:33 Chronic hypertension complicating AND/OR reason for care during 86510378 O16.9 [id number] Neema Dodge [facility] [address],[place] [address] 07/31/2024 16:45:05 07/31/2024 18:10:32 -induced hypertension 52724858 O13.9 O09.813 O09.513 Z3A.28 [id number] RAJ VINES MD [facility] [address],[place] [address] 07/31/2024 16:45:19 08/02/2024 10:00:10 -induced hypertension 62745856 O13.9 - gestationa l HTN diagnosed at 27 weeks- on bASA ppx since 12 weeks- BPs 140s-150s/ 80s-90s- twice weekly testing, weekly labs- plan for delivery at 37 weeks- continue to monitor for progressio n to preeclamps ia Advanced m aternal age 323910536 O09.512 IVF - in-v itro fertilization [id number] 2102 O09.819 - echo order sent Gestation period, 28 weeks 65033521 Z3A.28 [id number] Leatha Martin [facility] [address],[place] [address] 08/03/2024 16:02:52 08/06/2024 03:13:36 IVF - in-vitro fertilization 7372474180 2102 O09.819 [id number] RAJ VINES MD [facility] [address],[place] [address] 08/07/2024 15:52:25 08/07/2024 16:28:08 -induced hypertension 84559249 O13.9 - gestationa l HTN diagnosed at 27 weeks- on bASA ppx since 12 weeks- BPs 140s-150s/ 80s-90s- twice weekly testing, weekly labs- plan for delivery at 37 weeks- continue to monitor for progressio n to preeclamps ia Advanced m aternal age 581790519 O09.512 IVF - in-v itro fertilization 7301720173 2102 O09.819 - echo scheduled 08/09 Gestation period, 29 weeks 19791767 Z3A.29 - continue PNV [id number] Neema Dodge [facility] [address],[facility] [place] [address] 08/07/2024 15:53:04 08/07/2024 17:11:38 IVF - in-vitro fertilization 6357927670 2102 O09.813 O13.3 O09.513 [id number] Anais Camacho [facility] [address],[place] [address] 08/07/2024 15:53:16 08/07/2024 17:38:00 -induced hypertension 40195834 O13.9 Chronic hy pertension complicating AND/OR reason for care during 54609609 O16.9 [id number] Sherly Solano [facility] [address],[place] [address] 08/10/2024 16:18:25 08/13/2024 05:08:05 IVF - in-vitro fertilization [id number] 2 O09.819 - echo scheduled 08/09 Health Concerns Section Related Observation LastModified by Organization Detai ls LastModified Time None Recorded Concern Status LastModified by Organization Details LastModified Time None Recorded Advance Directives Directive N: Payers Encounter Date Sequence Insurance Name Policy Number Policy Ambrose Covered Member ID Ambrose Member ID Guarantor Name 08/03/2024 2 [employer] [id number] [place] [id number] Blanca M Romina 08/03/2024 1 [facility] DOS 05/30/2024 AND AFTER Blanca M Romina [id number] [facility] Romina 08/07/2024 2 [employer] [id number] Sybil Oh [id number] [facility] Romina 08/07/2024 1 [facility] - DOS 05/30/2024 AND AFTER Blanca M Romina [id number] Blanca Singh Romina 08/07/2024 2 R [id number] Sybil Arroyoutz [id number] Blanca M Romina 08/07/2024 1 [facility] DOS 05/30/2024 AND AFTER Blanca M Romina [id number] Blanca M Romina 08/07/2024 2 R [id number] Sybil Arroyoutz [id number] Blanca Singh Romina 08/07/2024 1 [facility] DOS 05/30/2024 AND AFTER Blanca M Romina [id number] Blanca M Romina 08/10/2024 2 R [id number] Sybil Arroyoutz [id number] Blanca Romina 08/10/2024 1 [facility] DOS 05/30/2024 AND AFTER Blanca Singh Romina [id number] Blanca Singh Romina OBGyn Episode Ob Episode Information Episode Created Date Number of Fetuses Patient Bloodtype Patient rh Status Prepregnancy Weight lbs Domestic Partner Domestic Partner Phone Father Name Title Officer Status 05/01/20 24 1 B Positive OPEN Fetus Data First Name Last Name Admitted to NICU Weight (g) Sex Living Outcome Pediatric Complications Fetus ID Race Codes Race Delivery Type [id number] Problems Problem Notes per Taylor IBRAHIM weekly labs he re /BPs log at home Problem Name Start Date End Date Resolution Snomed Code Not e -induced hypertension 08/04/2024 [id number] [facility] referral faxed Taylor 08/07/24 Anemia 563240798 Hgb 9.1 Ir on infusion order faxed 08/10 - refaxed 08/13 IVF - in-vitro fertilization 05/01/2024 [phone] faxed e cho order 07/17 Taylor scheduled 08/09 echo Advanced maternal age 05/01/2024 [id number] [id number] BID, weekly labs to see Taylor IBRAHIM this month scheduled 08/17 10:15 [employer] office visit Fernando Calculation Initial Fernando Date Initial Exam Date Initial Exam Provider Initial Ultrasound Date Last Menstrual Period Date Ultra Sound Weeks Gestation 10/22/2024 05/01/2024 04/09/2024 12/02/2023 12 Eighteen To Twenty Week Fernando Update Ultra Sound Date Fundal Height At Umbil Quickening Date Ultra Sound Latest Weeks Gestation Final Fernando Confirmed By Final Fernando Confirmed Date Final Fernando Date Ultra Sound Latest Days Gestation 0 [email or web address] 05/01/2024 10/23/19 25 0 Pre-selina Flowsheet Flowsheet Date 05/01/2024 Boogie Score Blood Edema Fundus Height Fundus Units Glucose Ketones Leukocytes Nitrite Labor Signs Protein Cervic Dilation Cervic Effacement Cervic Station neg none Type Weight in lbs Pre/Post Dialysis Refused Weight 171.023359311980 BP Diastolic BP Location Tested BP Systolic BP Type 86 L arm 127 sitting Fetus Heart Rate Present A 145 Fetus Movement A No Comments Presents to establish prenat al care. Patient c/o of nausea and slight lower pains. Doing well otherwise. complicated by IVF and AMA. Recommend low dose ASA ppx for preeclampsia. NIPT and new OB labs wnl. Discussed anatomy US for next visit. RTC 4 weeks. Flowsheet Date 05/31/2024 Boogie Score Blood Edema Fundus Height Fundus Units Glucose Ketones Leukocytes Nitrite Labor Signs Protein Cervic Dilation Cervic Effacement Cervic Station Type Weight in lbs Pre/Post Dialysis Refused BP Diastolic BP Location Tested BP Systolic BP Type Fetus Heart Rate Present Fetus Movement Comments Flowsheet Date 05/31/2024 Boogie Score Blood Edema Fundus Height Fundus Units Glucose Ketones Leukocytes Nitrite Labor Signs Protein Cervic Dilation Cervic Effacement Cervic Station neg none Type Weight in lbs Pre/Post Dialysis Refused 168.678804455519 BP Diastolic BP Location Tested BP Systolic BP Type 84 L arm 128 sitting Fetus Heart Rate Present Fetus Movement A Increased Comments Patient c/o of slight nausea , will refill zofran. No cramping or bleeding. Anatomy complete and normal today, EFW 48%. Breech, will repeat growth US at 32 weeks for AMA/IVF. Needs order for echo next visit. RTC 4 weeks. Flowsheet Date 06/26/2024 Boogie Score Blood Edema Fundus Height Fundus Units Glucose Ketones Leukocytes Nitrite Labor Signs Protein Cervic Dilation Cervic Effacement Cervic Station neg none Type Weight in lbs Pre/Post Dialysis Refused 168.692738599705 BP Diastolic BP Location Tested BP Systolic BP Type 83 L arm 142 sitting Fetus Heart Rate Present A 150 Fetus Movement A Yes Comments Good movement. No cram ping or bleeding. Nausea improving. Discussed GCT and labs for next visit. Discussed echo for IVF , will send order today. RTC 4 weeks. Flowsheet Date 07/25/2024 Boogie Score Blood Edema Fundus Height Fundus Units Glucose Ketones Leukocytes Nitrite Labor Signs Protein Cervic Dilation Cervic Effacement Cervic Station neg none Type Weight in lbs Pre/Post Dialysis Refused Weight 168.829944165501 BP Diastolic BP Location Tested BP Systolic BP Type 89 L arm 146 sitting Fetus Heart Rate Present A 140 Fetus Movement A Yes Comments Wants to talk about high blo od pressure. Has had some elevated BP at home. Usually in the 140s/80s, rarely in 150s systolic. Denies headaches, vision changes, chest pain, dyspnea, RUQ pain or epigastric pain. Discussed diagnosis of gestational hypertension given multiple elevated BPs both at home and in office. Discussed spectrum of preeclampsia. Plan for twice weekly testing and weekly labs. Discussed delivery at 37 weeks if labs and symptoms remain stable. Discussed earlier delivery may be indicated if severe features develop. Patient voices understanding. GCT and labs today. Good movement. No cramping or bleeding. Will RTC to start testing. Flowsheet Date 07/31/2024 Boogie Score Blood Edema Fundus Height Fundus Units Glucose Ketones Leukocytes Nitrite Labor Signs Protein Cervic Dilation Cervic Effacement Cervic Station Type Weight in lbs Pre/Post Dialysis Refused Weight 168.582078802270 BP Diastolic BP Location Tested BP Systolic BP Type 68 L arm 155 sitting Fetus Heart Rate Present Fetus Movement Comments Flowsheet Date 07/31/2024 Boogie Score Blood Edema Fundus Height Fundus Units Glucose Ketones Leukocytes Nitrite Labor Signs Protein Cervic Dilation Cervic Effacement Cervic Station Type Weight in lbs Pre/Post Dialysis Refused BP Diastolic BP Location Tested BP Systolic BP Type Fetus Heart Rate Present Fetus Movement Comments Flowsheet Date 07/31/2024 Boogie Score Blood Edema Fundus Height Fundus Units Glucose Ketones Leukocytes Nitrite Labor Signs Protein Cervic Dilation Cervic Effacement Cervic Station neg none Type Weight in lbs Pre/Post Dialysis Refused Weight 168.300496212373 BP Diastolic BP Location Tested BP Systolic BP Type 88 L arm 155 sitting Fetus Heart Rate Present A 140 Fetus Movement A Yes Comments Good movement. No cram ping or bleeding. Denies headaches, vision changes, chest pain, dyspnea, RUQ pain or epigastric pain. Echo scheduled for next week. BPP 10/10. Passed GCT. Anemia with Hgb 8.3. If BP still borderline severe at next testing, consider MFM consultation for concern for progression to severe preeclampsia. Flowsheet Date 08/03/2024 Boogie Score Blood Edema Fundus Height Fundus Units Glucose Ketones Leukocytes Nitrite Labor Signs Protein Cervic Dilation Cervic Effacement Cervic Station Type Weight in lbs Pre/Post Dialysis Refused Weight 166.988904401347 BP Diastolic BP Location Tested BP Systolic BP Type 94 151 Fetus Heart Rate Present Fetus Movement Comments Flowsheet Date 08/07/2024 Boogie Score Blood Edema Fundus Height Fundus Units Glucose Ketones Leukocytes Nitrite Labor Signs Protein Cervic Dilation Cervic Effacement Cervic Station neg none Type Weight in lbs Pre/Post Dialysis Refused Weight 166.932983043460 BP Diastolic BP Location Tested BP Systolic BP Type 102 L arm 148 sitting Fetus Heart Rate Present Fetus Movement A Yes Comments Patient c/o slight nausea, s tates the past few days has been really tired, zoning out and a little dizzy. Good movement. No cramping or bleeding. Labs wnl last week aside from low Hgb. Will recheck labs today. Will start weekly Fe infusions if Hgb still low due to symptoms. NST/BPP to follow. Plan for MFM referral due to concern for progression to preeclampsia with severe features. Continue twice weekly testing. Flowsheet Date 08/07/2024 Boogie Score Blood Edema Fundus Height Fundus Units Glucose Ketones Leukocytes Nitrite Labor Signs Protein Cervic Dilation Cervic Effacement Cervic Station Type Weight in lbs Pre/Post Dialysis Refused BP Diastolic BP Location Tested BP Systolic BP Type Fetus Heart Rate Present Fetus Movement Comments Flowsheet Date 08/07/2024 Boogie Score Blood Edema Fundus Height Fundus Units Glucose Ketones Leukocytes Nitrite Labor Signs Protein Cervic Dilation Cervic Effacement Cervic Station Type Weight in lbs Pre/Post Dialysis Refused BP Diastolic BP Location Tested BP Systolic BP Type Fetus Heart Rate Present Fetus Movement Comments Flowsheet Date 08/10/2024 Boogie Score Blood Edema Fundus Height Fundus Units Glucose Ketones Leukocytes Nitrite Labor Signs Protein Cervic Dilation Cervic Effacement Cervic Station Type Weight in lbs Pre/Post Dialysis Refused Weight 166.640493022280 BP Diastolic BP Location Tested BP Systolic BP Type 89 L arm 144 sitting Fetus Heart Rate Present Fetus Movement Comments Menstrual History Last Menstrual Date Menses Monthly On Bcp Conception Prior Menses Frequency Hcg Plus Date Menarche Onset Age 0712/02/2023 Delivery Information Delivery Date Delivery Type Labor Anesthesia Weeks Gestation Incision Type Labor Labor Length Hrs Delivered By Post Complications Tubal Sterilization Discharge Date Comments Discharge Information Feeding Method Contraceptive Method Maternal HG B and HCT Levels
--- OUTSIDE RECORDS SUMMARY | 2024-08-13 14:18 | XMS_ITS | Data Portability ---
Author Organization [facility] Address [address] [place] [address] Assessment No assessment recorded. Plan of Treatment Reminders Order Date Submit Date Provider Last Modified By Organization Details Last Modified Time Details Appointments None recorded. Lab SARS CoV 2 RNA (COVID-19), QL, bulb tester-PCR, respiratory specimen - [facility] 2019 020 [facility] (Lab), [address] [place], [address], 0 19:55:04 Referral None recorded. Procedures None recorded. Surgeries None recorded. Imaging None recorded. Medication Orders None recorded. Patient TargetsNo targets recorded. Patient Instructions Encounter Date Encounter Id Patient Instructions Last Modified By Organization Details Last Modified Time 02/11/2020 [id number] things to do i f you've been exposed to covid-19 Not available 02/11/2020 12:50:46 Reviewed the following recommendations: -Stay home and separate from others as much as possible. -Monitor your symptoms and seek medical attention for trouble breathing, persistent chest pain, confusion, or bluish lips or face. -Wear a mask if you must be around other people. -Wash your hands often for 20 seconds with soap and water and clean high-touch surfaces daily -You may discontinue home isolation if your symptoms are improving and it has been 10 days since symptoms started. Not available 02/11/2020 12:50:26 Reason for Referral None Reported. Results Created Date Observation Date Name Description Value Unit Range Abnormal Flag Note LastModifiedBy Organization Detail LastModifiedTime 02/11/20 20 02/11/2020 SARS CoV 2 RNA (COVI D-19) , QL, bulb tester-P CR, respi rator y speci men sars - cov - 2 PCR NEGATI VE mL Not Available [facility] (Lab) [address] [facility], [place], [address], 02/12/2020 19:55:04 02/11/20 20 02/11/2020 SARS CoV 2 RNA (COVI D-19) , QL, bulb tester-P CR, respi rator y speci men covidcom1 COMME NTS: This assay is desig moe to detec t the RdRp and N genes of SARS- CoV-2 using nucle ic acid ampli ficat ion. A negat melvin resul t does not precl ude the possi bilit y of 2019- nCoV infec tion since the adequ acy of sampl e colle ction and/o r low viral burde n may resul t in the prese nce of viral nucle ic acids level s below the pamela tical sensi tivit y of this test metho d. Not Available [facility] (Lab) [address] [facility], [place], [address], 02/12/2020 19:55:04 02/11/20 20 02/11/2020 SARS CoV 2 RNA (COVI D-19) , QL, bulb tester-P CR, respi rator y speci men covidcom2 Posit melvin resul ts are indic ative of the prese nce of SARS- CoV-2 RNA and do not rule out bacte rial infec tion or co-in fecti on with other virus es. Not Available [facility] (Lab) [address] [facility], [place], [address], 02/12/2020 19:55:04 02/11/20 20 02/11/2020 SARS CoV 2 RNA (COVI D-19) , QL, bulb tester-P CR, respi rator y speci men covidcom3 Test resul ts shoul d be used along with other clini aury obser vatio ns, patie nt histo ry, epide miolo gical infor matio n and labor atory data in makin g the diagn osis. Not Available [facility] (Lab) [address] [facility], [place], [address], 02/12/2020 19:55:04 02/11/20 20 02/11/2020 SARS CoV 2 RNA (COVI D-19) , QL, bulb tester-P CR, respi rator y speci men covidcom4 This test has recei parminder FDA Emerg ency Use Autho rizat ion and has been verif ied by [facility] [employer] atory . This test is only autho rized for the durat ion of the decla ratio n and the circu mstan manpreet that exist to justi fy the autho rizat ion of the emerg ency use of in vitro diagn ostic tests for the detec tion of SARS- CoV-2 virus and/o r diagn osis of COVID -19 infec tion under secti on 564 (b) (1) of the Act. 11 U.S.C . 360bb b-3 (b) (1), unles s the autho rizat ion is termi nated or revok ed soone r. Not Available [facility] (Lab) [address] [place], [address], 02/12/2020 19:55:04 02/11/20 20 02/11/2020 SARS CoV 2 RNA (COVI D-19) , QL, bulb tester-P CR, respi rator y speci men covidcom5 [facility] [employer] atory is certi fied under CLIA- 88 as quali fied to perfo rm high compl exity testi ng. This testi ng was perfo rmed in the [facility] [employer] [place] [address] (CLIA Licen se #[id number], CAP #[id number], AU-ID #[id number]). Not Available [facility] (Lab) [address] [place], [address], 02/12/2020 19:55:04 02/11/20 20 02/11/2020 SARS CoV 2 RNA (COVI D-19) , QL, bulb tester-P CR, respi rator y speci men covidcom6 Facts heet for healt hcare provi ders: https ://ww w.fda .gov/ media /1362 56/do wnloa d Facts heet for alpa nts: https ://ww w.fda .gov/ media /1362 57/do wnloa d Not Available [facility] (Lab) [address] [place], [address], 02/12/2020 19:55:04 Result Notes None recorded. Medical Equipment None Reported. Medications Name Sig Start Date Stop Date Status Note LastModified by Organization Details LastModified Time Isibloom 0.15 mg-0.03 mg tablet active Not Available Not Available Not Available Vitals None Recorded Social History None recorded. Functional Status None recorded. Mental Status None recorded. Family History Nothing Reported. Medical History No medical history recorded. Gynecological HistoryNo gynecological history recorded. Obstetrics History GPAL:G 0 P 0 0 0 0 Past Encounters Encounter ID Performer Location Encounter Start Date Encounter Closed Date Diagnosis/Indication Diagnosis SNOMED-CT Code Diagnosis ICD10 Code Diagnosis Note [id number] KEMAL Guevara [address] [place] [address] 02/11/2020 11:31:14 02/12/2020 16:17:57 Viral syndrome 470419091 B34.9 Viral screening 12338298 4 Z11.59 Exposure t o SARS-CoV-2 288156792 Z20.828 Health Concerns Section Related Observation LastModified by Organization Detai ls LastModified Time None Recorded Concern Status LastModified by Organization Details LastModified Time None Recorded Advance Directives Directive None Recorded Payers Encounter Date Sequence Insurance Name Policy Number Policy Ambrose Covered Member ID Ambrose Member ID Guarantor Name 02/11/2020 1 [employer] - ALLIED BENEFITS - OPEN ACCESS Blanca Romina [id number] Blanca Romina Notes Date Note Type Note Provider Name and Address Organization Details Recorded Time 02/11/2020 text/html Pt requesting COVID-19 testing; as she c/o rhinitis (chronic). Pt reports being in contact with co-worker whom recently tested positive. KEMAL Guevara Attn: Accounting,[address] [place], [address], [facility] 02/11/2020 12:51:23 OBGyn Episode No OBEpisode recorded.
--- OUTSIDE RECORDS SUMMARY | 2024-08-13 14:19 | XMS_ITS | Encounter Summary ---
Author Organization [facility] Address [address] [place] [address] Care Team Providers Care Parts Runner Name Role Phone Unavailable Primary Care Provider Unavailabl e Encounter Details Date Type Department Care Team (Late st Contact Info) Description 12/11/2001 Outpatient Historical [facility] Emergency Department [address] [facility] [address] [address] Dave Reid MD [address] [place] [phone] Social History Tobacco Use Types Packs/Day Years Used Date Smoking Tobacco: Never Assessed Comments Unknown Sex and Gender Information Value Date Recorded Sex Assigned at Female 08/06/2024 9:23 AM CDT 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 Gender Identity Female 08/06/2024 9:23 AM CDT Sexual Orientation Not on file documented as of this encounter Plan of Treatment Upcoming Encounters Date Type Department Care Team (Late st Contact Info) Description 08/17/2024 10:15 AM CDT Initial [facility] Maternal Medicine [address] [facility] [address] [address] [facility] [address] [place] [address] Bethany Duffy NP [address] [facility] [address] [place] [address] documented as of this encounter Visit Diagnoses Not on filedocumented in this encounter
--- OUTSIDE RECORDS SUMMARY | 2024-08-13 14:19 | XMS_ITS | Encounter Summary ---
Author Organization [facility] Address [address] [place] [address] Care Team Providers Care Laser Systems Engineer Name Role Phone Unavailable Primary Care Provider Unavailabl e Encounter Details Date Type Department Care Team (Late st Contact Info) Description 11/19/2002 Outpatient Historical [facility] Emergency Department [address] [facility] [address] [address] Dave Reid MD [address] [place] [address] [phone] Social History Tobacco Use Types Packs/Day Years Used Date Smoking Tobacco: Never Assessed Comments Unknown Sex and Gender Information Value Date Recorded Sex Assigned at Female 08/06/2024 9:23 AM CDT Legal Sex Female 2:37 AM HEAD OF IT Gender Identity Female 08/06/2024 9:23 AM CDT Sexual Orientation Not on file documented as of this encounter Plan of Treatment Upcoming Encounters Date Type Department Care Team (Late st Contact Info) Description 08/17/2024 10:15 AM CDT Initial [facility] Maternal Medicine [address] [facility] [address] [address] [facility] [address] [place] [address] Bethany Duffy NP [address] [facility] [address] [place] [address] documented as of this encounter Visit Diagnoses Not on filedocumented in this encounter
--- OUTSIDE RECORDS SUMMARY | 2024-08-13 14:19 | XMS_ITS | Encounter Summary ---
Author Organization [facility] Address [address] [place] [address] Care Team Providers Care Almond Blancher Operator Name Role Phone Unavailable Primary Care Provider Unavailabl e Encounter Details Date Type Department Care Team (Late st Contact Info) Description 07/12/2001 Outpatient Historical [facility] [address] [facility] [address] [address] Dave Reid MD [address] [place] [phone] Social History Tobacco Use Types Packs/Day Years Used Date Smoking Tobacco: Never Assessed Comments Unknown Sex and Gender Information Value Date Recorded Sex Assigned at Female 08/06/2024 9:23 AM CDT 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
--- OUTSIDE RECORDS SUMMARY | 2024-08-13 14:19 | XMS_ITS | Encounter Summary ---
Author Organization [facility] Address [address] [place] [address] Care Team Providers Care Solid Waste Facility Supervisor Name Role Phone Unavailable Primary Care Provider Unavailabl e Encounter Details Date Type Department Care Team (Late st Contact Info) Description 09/13/2001 Outpatient Historical [facility] [address] [facility] [address] [address] Dave Reid MD [address] [place] [address] [phone] Social History Tobacco Use Types Packs/Day Years Used Date Smoking Tobacco: Never Assessed Comments Unknown Sex and Gender Information Value Date Recorded Sex Assigned at Female 08/06/2024 9:23 AM CDT 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 Gender Identity Female 08/06/2024 9:23 AM CDT Sexual Orientation Not on file documented as of this encounter Plan of Treatment Upcoming Encounters Date Type Department Care Team (Late st Contact Info) Description 08/17/2024 10:15 AM CDT Initial [facility] Maternal Medicine [address] [facility] [address] [address] [facility] [address] [place] [address] Bethany Duffy NP [address] [facility] [address] [place] [address] documented as of this encounter Visit Diagnoses Not on filedocumented in this encounter
--- OUTSIDE RECORDS SUMMARY | 2024-08-13 14:19 | XMS_ITS | Encounter Summary ---
Author Organization [facility] Address [address] [place] [address] Care Team Providers Care Film Historian Name Role Phone Unavailable Primary Care Provider Unavailabl e Encounter Details Date Type Department Care Team (Late st Contact Info) Description 11/12/2002 Outpatient Historical [facility] [address] [facility] [address] [address] Dave Reid MD [address] [place] [address] [phone] Social History Tobacco Use Types Packs/Day Years Used Date Smoking Tobacco: Never Assessed Comments Unknown Sex and Gender Information Value Date Recorded Sex Assigned at Female 08/06/2024 9:23 AM CDT 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 Gender Identity Female 08/06/2024 9:23 AM CDT Sexual Orientation Not on file documented as of this encounter Plan of Treatment Upcoming Encounters Date Type Department Care Team (Late st Contact Info) Description 08/17/2024 10:15 AM CDT Initial [facility] Maternal Medicine [address] [facility] [address] [address] [facility] [address] [place] [address] Bethany Duffy NP [address] [facility] [address] [place] [address] documented as of this encounter Visit Diagnoses Not on filedocumented in this encounter
== END 2024-08-13 13:17 | disposition home or self-care (01) ==
LOC: ANHOBOP 11:49 → ANHOBPP 11:53
PROVIDERS: PCP Family Medicine Adolescent Medicine; Visit Provider Obstetrics & Gynecology
DX: O13.9 Gestational [pregnancy-induced] hypertension without significant proteinuria, unspecified trimester (principal); Z3A.00 Weeks of gestation of pregnancy not specified
CPT/HCPCS: 36415; 59025; 80053; 81001; 82570; 84156; 84550; 85025; 99199

== ENCOUNTER 2025-04-01 15:40 | Outpatient (CLI) | payer OTHER, SELFPAY ==
--- NOTE | ~2025-04-01 | MR_ITS ---
MR thoracic spine wo con INDICATION: Pain and tenderness over the midline of the thorac COMPARISON: None. TECHNIQUE: Axial and sagittal T1-T2 weighted images along with coronal T2, sagittal IR and axial proton density sequences of the thoracic spine were obtained without infusion of gadolinium. FINDINGS: There is normal alignment of the thoracic vertebrae. There is anterior large compression deformity of T5 vertebral body demonstrate normal bone marrow signal. This may be related to degenerative changes or may represent a chronic compression fracture. The disc space and signal are preserved.. The cord demonstrates normal signal. No high-grade central canal stenosis or neural foraminal narrowing is identified. No intrathecal masses are seen. There are no areas of pathologic signal intensity within the bone marrow to suggest an acute fracture or neoplasm. IMPRESSION: No high-grade central or foraminal stenosis is evident. i There is no acute compression fracture or abnormal cord signal intensity. There is anterior wedge compression deformity of T5 vertebral body. This may represent chronic fracture versus degenerative changes. Reviewed, dictated and finalized at location S. [facility] IMPRESSION: No high-grade central or foraminal stenosis is evident. i There is no acute compression fracture or abnormal cord signal intensity. There is anterior wedge compression deformity of T5 vertebral body. This may re present chronic fracture versus degenerative changes.
--- OUTSIDE RECORDS SUMMARY | 2025-04-01 15:55 | XMS_ITS | Encounter Summary ---
Author Organization [facility] Address [address] [place] [address] Care Team Providers Care Software Test Developer Name Role Phone Unavailable Primary Care Provider Unavailabl e Encounter Details Date Type Department Care Team (Late st Contact Info) Description 07/12/2001 Outpatient Historical [facility] [address] [facility] [address] [address] Dave Reid MD [address] [place] [phone] Social History Tobacco Use Types Packs/Day Years Used Date Smoking Tobacco: Never Assessed Comments Unknown Sex and Gender Information Value Date Recorded Sex Assigned at Female 08/06/2024 9:23 AM CDT 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
--- OUTSIDE RECORDS SUMMARY | 2025-04-01 15:55 | XMS_ITS | Encounter Summary ---
Author Organization [facility] Address [address] [place] [address] Care Team Providers Care Lead Javascript Engineer Name Role Phone Unavailable Primary Care Provider Unavailabl e Encounter Details Date Type Department Care Team (Late st Contact Info) Description 12/11/2001 Outpatient [facility] [address] [facility] [address] [address] Dave Reid MD [address] [place] [address] [phone] Social History Tobacco Use Types Packs/Day Years Used Date Smoking Tobacco: Never Assessed Comments Unknown Sex and Gender Information Value Date Recorded Sex Assigned at Female 08/06/2024 9:23 AM CDT 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
--- OUTSIDE RECORDS SUMMARY | 2025-04-01 15:55 | XMS_ITS | Encounter Summary ---
Author Organization [facility] Address [address] [place] [address] Care Team Providers Care Rail Car Maintenance Mechanic Name Role Phone Unavailable Primary Care Provider Unavailabl e Encounter Details Date Type Department Care Team (Late st Contact Info) Description 11/19/2002 Outpatient Historical [facility] [address] [facility] [address] [address] Dave Reid MD [address] [place] [phone] Social History Tobacco Use Types Packs/Day Years Used Date Smoking Tobacco: Never Assessed Comments Unknown Sex and Gender Information Value Date Recorded Sex Assigned at Female 08/06/2024 9:23 AM CDT 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
--- OUTSIDE RECORDS SUMMARY | 2025-04-01 15:55 | XMS_ITS | Clinical Summary ---
Author Organization [facility] [address] [place] [address] Phone Care Team Providers Care Trim Carpenter Name Role Phone Unavailable Primary Care Provider Unavailabl e Allergies No known active allergies Medications omeprazole (PriLOSEC) 20 mg Capsule, Delayed Release(E.C.) Take 20 mg by mouth daily. Active levothyroxine 112 mcg tablet Take 112 mcg by mouth daily in the morning. 1 pill Tue-. Tuesday-Tue 2 pills Active FOLIC ACID ORAL Take by mouth. Active CHOLECALCIFEROL, VITAMIN D3, ORAL Take by mouth. Active sertraline (ZOLOFT) 50 mg tablet Take 50 mg by mouth daily. Active cetirizine (ZyrTEC) 10 mg tablet Take 10 mg by mouth daily. Active levothyroxine 112 mcg tablet Starting 09/16: Take 1 Tablet (112 mcg) by mouth daily in the morning. 30 Tablet 09/15/2024 6:46 PM CDT 5 Active oxyCODONE (ROXICODONE) 5 mg tabletIndication s:Delivery by elective section Take 1 Tablet (5 mg) by mouth every 4 hours as needed for Pain. Max Daily Amount: 6 tablets 15 Tablet 09/15/2024 6:46 PM CDT 5 Active Iron Polysacch Xoldqkq-P31-RH (FERREX 150 FORTE) 150-25-1 mg-mcg-mg CapsuleIndicatio ns:Iron deficiency anemia, unspecified iron deficiency anemia type Take 1 Capsule by mouth daily. 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 08/2024 Iron deficiency anemia 08/31/2024 Hypertension in , pre-eclampsia, severe , delivered 08/18/2024 Mild pre-eclampsia in third trimester 08/17/2024 AMA (advanced maternal age) primigravida 35+, third trimester 08/17/2024 resulting from ass isted reproductive technology, third trimester 08/17/2024 Hypothyroidism affecting in third trim bartolo 08/17/2024 History of anxiety 08/17/2024 Anemia in , third trimester 08/17/2024 Encounters Date Type Department Care Team Description 03/27/2025 External Device Data ST[facility] ABSTRACTION Provider, Abstract 03/26/2025 External Device Data [facility] ABSTRACTION Provider, Abstract 03/20/2025 External Device Data [facility] ABSTRACTION Provider, Abstract 03/19/2025 External Device Data [facility] ABSTRACTION Provider, Abstract 02/19/2025 External Device Data [facility] ABSTRACTION Provider, Abstract 02/12/2025 External Device Data [place] ABSTRACTION Provider, Abstract 01/29/2025 External Device Data ST[place] ABSTRACTION Provider, Abstract 01/29/2025 External Device Data ST[place] ABSTRACTION Provider, Abstract 01/15/2025 External Device Data ST[place] ABSTRACTION Provider, Abstract 01/15/2025 External Device Data ST[facility] ABSTRACTION Provider, Abstract from Last 3 Months Immunizations Immunization Administration Dates Next Due (ADACEL/BOOSTRIX)(10 YR UP) TDAP VACCINE, 0.5ML, IM 08/19/2024 Family History Medical History Relation Name Comments Hypertension Mother Relation Name Status Comments Mother Social History Tobacco Use Types Packs/Day Years Used Date Smoking Tobacco: Never Smokeless Tobacco: Never Tobacco Cessation:Counseling Given: Not Answered Alcohol Use Standard Drinks/Week Comments Not Currently 0 (1 standard drink = 0.6 oz pur e alcohol) Feeling Safe Answer Date Recorded Are you in a relationship wi th someone who hurts you emotionally and/or physically? 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 Gender Identity Female 08/06/2024 9:23 AM CDT Sexual Orientation Not on file Last Filed Vital Signs Vital Sign Reading Time Taken Comments Blood Pressure 100/66 09/19/2024 11:35 AM CDT Pulse 85 09/19/2024 11:35 AM CDT Temperature 37.1 C (98.7 F) 09/15/2024 1:11 PM CDT Respiratory Rate 18 09/15/2024 1:11 PM CDT Oxygen Saturation 99% 09/19/2024 11:35 AM CDT Inhaled Oxygen Concentration - - Weight 68.5 kg (151 lb) 09/19/2024 11:35 AM CDT Height 162.6 cm (5' 4) 09/19/2024 11:35 AM CDT Body Mass Index 25.92 09/19/2024 11:35 AM CDT Plan of Treatment Health Maintenance Due Date Last Done Comments Pre-Diabetes and Diabetes Screening 1983 HEPATITIS B VACCINES (1 of 3 - 19+ 3-dose series) 2002 HPV/Cotest (21-29) 2004 HPV VACCINES (1 - 3-dose SCDM series) 2010 CERVICAL CANCER SCREENING 2013 HPV/Cotest (30-65) 2013 PAP SMEAR 2013 BREAST CANCER SCREENING 2023 INFLUENZA VACCINE (#1) 2024 DTAP/TDAP/TD VACCINES (3 - Td or Tdap) 08/19/2034, 11/22/2022 Insurance [facility] OPTIONS PPO [id number] CHOICE [id number] RX [facility] [facility] [employer] RX Member Subscriber Plan / Payer (Ef fective 2024-Present) Name:Sigifredo Vanegas Relation to Subscriber:Self Name:Sigifredo Vanegas Subscriber ID:Not on file Payer ID:Not on file Group ID:[id number] Type:RX Commercial Address: [address] [employer] (INTERNAL) [employer] Internal Plans Advance Directives For more information, please contact: [phone] * Full Code (Latest Code Status on File) Date Activated Date Inactivated Comments 09/10/2024 4:03 PM 09/15/2024 7:30 PM * Full Code Date Activated Date Inactivated Comments 09/10/2024 4:03 PM 09/10/2024 4:03 PM * Full Code Date Activated Date Inactivated Comments 08/17/2024 2:28 PM 09/10/2024 4:03 PM
--- OUTSIDE RECORDS SUMMARY | 2025-04-01 15:55 | XMS_ITS | Encounter Summary ---
Author Organization [facility] Address [address] [place] [address] Care Team Providers Care Serger Name Role Phone Unavailable Primary Care Provider Unavailabl e Encounter Details Date Type Department Care Team (Late st Contact Info) Description 11/19/2002 Outpatient Historical [facility] [address] [facility] [address] [address] Dave Reid MD [address] [place] [address] [phone] Social History Tobacco Use Types Packs/Day Years Used Date Smoking Tobacco: Never Assessed Comments Unknown Sex and Gender Information Value Date Recorded Sex Assigned at Female 08/06/2024 9:23 AM CDT 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
--- OUTSIDE RECORDS SUMMARY | 2025-04-01 15:55 | XMS_ITS | Clinical Summary ---
Author Organization [facility] Address [address] [place] [address] Care Team Providers Care Hris Administrator Name Role Phone Anil Conde MD Primary [...] DRAW 11/03/19 24 Active BD Regular Bevel Grafton 22 gauge x 1 1/2 needle USE DIRECTED [PROGESTERONE MEDICATION] INJECT INTRAMUSCULARLY 11/03/19 24 Active BD Regular Bevel G[place]on 25 gauge x 1 1/2 needle USE DIRECTED [H.C.G. MEDICATION] INJECT INTRAMUSCULARLY 11/03/19 24 Active BD Regular Bevel Grafton 27 gauge x 1/2 needle USE DIRECTED [...] (01/24/2024): Dysfunctional uterine bleeding;Recorded Elsewhere: No Location: [facility] Source: EHR Chronic: N Practice ID: [...] on file Legal Sex Female 10:56 PM EDGERMAN Gender Identity Female 07/22/2022 8:55 AM EDGERMAN Sexual Orientation Lesbian 07/22/2022 8: 55 AM EDGERMAN Last Filed Vital Signs Vital Sign Reading [...] 4:27 PM CDT Height 161.9 cm (5' 3.75) 01/24/2024 4:27 PM CD T Body Mass Index 30.27 01/24/2024 4:27 PM CDT Plan of Treatment Health Maintenance Due Date Last Done Comments Breast Cancer Screening-Mammogram 1983 Cervical Cancer Screening 1983 Depression Screening 1983 Hepatitis C Screening 1983 Varicella Vaccines (1 of 2 - 13+ 2-dose series) 1996 Regular Well Visit/Exam 18-64 2001 HPV Vaccines (1 - 3-dose SCDM series) 2010 Covid-19 Vaccine (2024- season) 2025 04/18/2021, 07/11/2020, 06/12/2020 Influenza Vaccine (#1) 2025 DTaP/Tdap/Td Vaccine (7 - Td or Tdap) 11/22/2032 11/22/2022, 04/15/1988, 02/19/1985, Additional history exists Hepatitis B Screening Completed 08/30/2003, 002 Pneumococcal vaccine <65 Aged Out No longer eligible based on patient's age to complete this topic Insurance [facility] HMO/PPO Address: [address] [address] [place] [address] [facility] CHOICE PLUS [facility] HMO/PPO Address: [address] [address] [place] [address] R [facility] H[facility]/PPO Address: [address] [address] Advance Directives For more information, please contact: [phone] * Full Code (Latest Code Status on File) Date Activated Date Inactivated Comments 11/23/2022 11:19 PM 11/26/2022 6:01 PM Care Teams Hris Administrator Relationship Specialty Start Date End Date Anil Conde MD PCP - General Family Medicine 11/22/22
--- OUTSIDE RECORDS SUMMARY | 2025-04-01 15:55 | XMS_ITS | Encounter Summary ---
Author Organization [facility] Address [address] [place] [address] Care Team Providers Care Purification Supervisor Name Role Phone Unavailable Primary Care Provider Unavailabl e Encounter Details Date Type Department Care Team (Late st Contact Info) Description 11/12/2002 Outpatient Historical [facility] [address] [facility] [address] [address] Dave Reid MD [address] [place] [phone] Social History Tobacco Use Types Packs/Day Years Used Date Smoking Tobacco: Never Assessed Comments Unknown Sex and Gender Information Value Date Recorded Sex Assigned at Female 08/06/2024 9:23 AM CDT 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
--- OUTSIDE RECORDS SUMMARY | 2025-04-01 15:55 | XMS_ITS | Encounter Summary ---
Author Organization [facility] Address [address] [place] [address] Care Team Providers Care Tire Fabric Inspector Name Role Phone Unavailable Primary Care Provider Unavailabl e Encounter Details Date Type Department Care Team (Late st Contact Info) Description 09/13/2001 Outpatient Historical [facility] [address] [facility] [address] [address] Dave Reid MD [address] [place] [address] [phone] Social History Tobacco Use Types Packs/Day Years Used Date Smoking Tobacco: Never Assessed Comments Unknown Sex and Gender Information Value Date Recorded Sex Assigned at Female 08/06/2024 9:23 AM CDT 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
--- OUTSIDE RECORDS SUMMARY | 2025-04-01 15:55 | XMS_ITS | Data Portability ---
Author Organization [facility] Address [address] [place] [place] [address] Care Team Providers Care Billing Control Clerk Name Role Phone ZAHRA CONNORS Primary Care Provider Assessment Encounter Date Assessment Date Assessment LastModified by Organization Details LastModified Time 01/29/2025 01/29/2025 Annual gynecological exam performed. Patient will come back in a year unless there are new symptoms. [email or web address] Not available 01/29/2025 14:49:14 Plan of Treatment Reminders Order Date Submit Date Provider Last Modified By Organization Details Last Modified Time Details Appointments None recorded. Lab test, urine 2024 025 [email or web address], [address], [place], [address], 17:30:20 surgical pathology study 2024 025 [facility] (Lab), [address] [facility] [address] [facility], [place], [address], 16:35:46 Referral None recorded. Procedures None recorded. Surgeries None recorded. Imaging non-stress test 2024 025 [email or web address], [place], [address], 06:45:38 US, obstetric, biophysical profile + non-stress test 2024 025 [email or web address], [place], [address], 21:37:16 Medication Orders None recorded. Patient TargetsNo targets recorded. Patient InstructionsNo instructions recorded. Reason for Referral None Reported. Results Created Date Observation Date Name Description Value Unit Range Abnormal Flag Note LastModifiedBy Organization Detail LastModifiedTime 07/25/1907/25/2024 HEMOG LOBIN (HGB) HGB 8.3 g/dL (based on docume nted legal sex) 11.6-1 5.4 low Not Available [facility] (Lab) [address] [facility], [place], [address], 07/26/2024 20:30:55 07/25/1907/25/2024 HEMAT OCRIT (HCT) HCT 28.6 % (based on docume nted legal sex) 34.0-4 5.0 low Not Available [facility] (Lab) [address] [facility] [address] [facility], [place], [address], 07/26/2024 20:30:56 07/25/19 25 07/25/2024 GTT - GESTA PETR L SALTY Plascencia, ACOG OB glucose, 1 hour screen 120 mg/dL 70-135 Not Available [facility] (Lab) [address] [place], [address], 07/26/2024 20:30:56 07/25/1907/25/2024 HIV 1/2 ANTIG EN/AN TIBOD Y, REFLE X CONFI RMATI ON HIV antigen/anti body Nonrea ctive nonrea ctive HIV-1 antig en and HIV-1 /HIV- 2 antib odies were not detec donna. No labor atory evide nce of HIV infec tion. Not Available [facility] (Lab) [address] [facility] [address] [facility], [place], [address], 07/26/2024 20:30:56 07/25/19 25 07/25/2024 RPR SCREE N, REFLE X TITER /CONF IRMAT ION RPR qualitative Nonrea ctive nonrea ctive Not Available [facility] (Lab) [address] [facility], [place], [address], 07/26/2024 20:30:56 08/01/19 25 07/31/2024 CBC W/DIF F WBC 10.4 10'3/ uL 3.5-10 .5 Not Available [facility] (Lab) [address] [facility], [place], [address], 08/01/2024 06:51:45 08/01/19 25 07/31/2024 CBC W/DIF F RBC 3.72 10'6/ uL (based on docume nted legal sex) 3.80-5 .20 low Not Available [facility] (Lab) [address] [facility], [place], [address], 08/01/2024 06:51:45 08/01/19 25 07/31/2024 CBC W/DIF F HGB 8.4 g/dL (based on docume nted legal sex) 11.6-1 5.4 low Not Available [facility] (Lab) [address] [facility], [place], [address], 08/01/2024 06:51:45 08/01/19 25 07/31/2024 CBC W/DIF F HCT 28.9 % (based on docume nted legal sex) 34.0-4 5.0 low Not Available [facility] (Lab) [address] [place], [address], 08/01/2024 06:51:45 08/01/19 25 07/31/2024 CBC W/DIF F MCV 77.7 fL 80.0-9 9.0 low Not Available [facility] (Lab) [address] [facility], [place], [address], 08/01/2024 06:51:45 08/01/19 25 07/31/2024 CBC W/DIF F MCH 22.6 pg 27.0-3 4.0 low Not Available [facility] (Lab) [address] [facility], [place], [address], 08/01/2024 06:51:45 08/01/19 25 07/31/2024 CBC W/DIF F MCHC 29.1 g/dL 32.0-3 5.5 low Not Available [facility] (Lab) [address] [facility], [place], [address], 08/01/2024 06:51:45 08/01/19 25 07/31/2024 CBC W/DIF F RDW 17.2 % 11.0-1 5.0 high Not Available [facility] (Lab) [address] [facility], [place], [address], 08/01/2024 06:51:45 08/01/19 25 07/31/2024 CBC W/DIF F plt 279 10'3/ uL 150-40 0 Not Available [facility] (Lab) [address] [facility], [place], [address], 08/01/2024 06:51:45 08/01/19 25 07/31/2024 CBC W/DIF F MPV 13.0 fL 8.8-12 .1 high Not Available [facility] (Lab) [address] [facility], [place], [address], 08/01/2024 06:51:45 08/01/19 25 07/31/2024 CBC W/DIF F neutrophils 59.9 % 34.0-7 3.0 Not Available [facility] (Lab) [address] [facility], [place], [address], 08/01/2024 06:51:45 08/01/19 25 07/31/2024 CBC W/DIF F lymphocytes 32.3 % 15.0-5 0.0 Not Available [facility] (Lab) [address] [place], [address], 08/01/2024 06:51:45 08/01/19 25 07/31/2024 CBC W/DIF F monocytes 5.0 % 1.0-15 .0 Not Available [facility] (Lab) [address] [facility], [place], [address], 08/01/2024 06:51:45 08/01/19 25 07/31/2024 CBC W/DIF F eosinophils 2.3 % 0.0-8. 0 Not Available [facility] (Lab) [address] [facility], [place], [address], 08/01/2024 06:51:45 08/01/19 25 07/31/2024 CBC W/DIF F basophils 0.2 % 0.0-2. 0 Not Available [facility] (Lab) [address] [facility], [place], [address], 08/01/2024 06:51:45 08/01/19 25 07/31/2024 CBC W/DIF [...] separ ately if prese nt. Not Available [facility] (Lab) [address] [facility], [place], [address], 08/01/2024 06:51:45 08/01/19 25 07/31/2024 CBC W/DIF F absolute neutrophils 6.2 10'3/ uL 1.5-8. 0 Not Available [facility] (Lab) [address] [facility], [place], [address], 08/01/2024 06:51:45 08/01/19 25 07/31/2024 CBC W/DIF F absolute lymphocytes 3.4 10'3/ uL 1.0-4. 0 Not Available [facility] (Lab) [address] [facility], [place], [address], 08/01/2024 06:51:45 08/01/19 25 07/31/2024 CBC W/DIF F absolute monocytes 0.5 10'3/ uL 0.2-1. 0 Not Available [facility] (Lab) [address] [facility], [place], [address], 08/01/2024 06:51:45 08/01/19 25 07/31/2024 CBC W/DIF F absolute eosinophils 0.2 10'3/ uL 0.0-0. 6 Not Available [facility] (Lab) [address] [facility], [place], [address], 08/01/2024 06:51:45 08/01/19 25 07/31/2024 CBC W/DIF F absolute basophils 0.0 10'3/ uL 0.0-0. 3 Not Available [facility] (Lab) [address] [facility], [place], [address], 08/01/2024 06:51:45 08/01/19 25 07/31/2024 CBC W/DIF F absolute immature granulocytes 0.0 10'3/ uL 0.00-0 .10 Refer ence range s for nonbi nary/ inter sex or unspe cifie d gende r patie nts have not been estab lishe d. Pleas e refer to the christ hagan table for range s estab lishe d for cisge nder patie nts and evalu ate in the clini shikha maxim xt of the indiv idual patie nt: https ://lennox izquierdo book. nm.or g/gen derx Not Available [facility] (Lab) [address] [facility], [place], [address], 08/01/2024 06:51:45 08/01/19 25 07/31/2024 URIC ACID uric acid 5.8 mg/dL 2.3-6. 6 Not Available [facility] (Lab) [address] [facility], [place], [address], 08/01/2024 06:51:46 08/01/19 25 07/31/2024 CMP(C OMPRE HENSI VE METAB OLIC PANEL ) sodium 135 mmol/ L 133-14 6 Not Available [facility] (Lab) [address] [facility], [place], [address], 08/01/2024 06:51:46 08/01/19 25 07/31/2024 CMP(C OMPRE HENSI VE METAB OLIC PANEL ) potassium 4.1 mmol/ L 3.5-5. 1 Not Available [facility] (Lab) [address] [facility], [place], [address], 08/01/2024 06:51:46 08/01/19 25 07/31/2024 CMP(C OMPRE HENSI VE METAB OLIC PANEL ) chloride 105 mmol/ L 98-107 Not Available [facility] (Lab) [address] [facility], [place], [address], 08/01/2024 06:51:46 08/01/19 25 07/31/2024 CMP(C OMPRE HENSI VE METAB OLIC PANEL ) carbon dioxide 23 mmol/ L 21-31 Not Available [facility] (Lab) [address] [facility], [place], [address], 08/01/2024 06:51:46 08/01/19 25 07/31/2024 CMP(C OMPRE HENSI VE METAB OLIC PANEL ) anion gap 7 mmol/ L 4-13 Not Available [facility] (Lab) [address] [place], [address], 08/01/2024 06:51:46 08/01/19 25 07/31/2024 CMP(C OMPRE HENSI VE METAB OLIC PANEL ) blood urea nitrogen 10 mg/dL 7-25 Not Available [facility] (Lab) [address] [place], [address], 08/01/2024 06:51:46 08/01/19 25 07/31/2024 CMP(C OMPRE HENSI VE METAB OLIC PANEL ) creatinine 0.69 mg/dL 0.60-1 .30 Not Available [facility] (Lab) [address] [place], [address], 08/01/2024 06:51:46 08/01/19 25 07/31/2024 CMP(C OMPRE HENSI VE METAB OLIC PANEL ) egfrcr (CKD-epi 2020) >90 mL/mi n/1.7 3_m2 >=60 Not Available [facility] (Lab) [address], [place], [address], 08/01/2024 06:51:46 08/01/19 25 07/31/2024 CMP(C OMPRE HENSI VE METAB OLIC PANEL ) calcium 8.6 mg/dL 8.3-10 .5 Not Available [facility] (Lab) [address], [place], [address], 08/01/2024 06:51:46 08/01/19 25 07/31/2024 CMP(C OMPRE HENSI VE METAB OLIC PANEL ) glucose 66 mg/dL 70-100 low Not Available [facility] (Lab) [address], [place], [address], 08/01/2024 06:51:46 08/01/19 25 07/31/2024 CMP(C OMPRE HENSI VE METAB OLIC PANEL ) protein, total 6.3 g/dL 6.4-8. 3 low Not Available [facility] (Lab) [address], [place], [address], 08/01/2024 06:51:46 08/01/19 25 07/31/2024 CMP(C OMPRE HENSI VE METAB OLIC PANEL ) albumin 3.3 g/dL 3.5-5. 0 low Not Available [facility] (Lab) [address], [place], [address], 08/01/2024 06:51:46 08/01/19 25 07/31/2024 CMP(C OMPRE HENSI VE METAB OLIC PANEL ) ALT 11 units /L 9-43 Not Available [facility] (Lab) [address], [place], [address], 08/01/2024 06:51:46 08/01/19 25 07/31/2024 CMP(C OMPRE HENSI VE METAB OLIC PANEL ) alkaline phosphatase 103 units /L 34-104 Not Available [facility] (Lab) [address] [facility], [place], [address], 08/01/2024 06:51:46 08/01/19 25 07/31/2024 CMP(C OMPRE HENSI VE METAB OLIC PANEL ) AST 20 units /L 13-39 Not Available [facility] (Lab) [address] [facility], [place], [address], 08/01/2024 06:51:46 08/01/19 25 07/31/2024 CMP(C OMPRE HENSI VE METAB OLIC PANEL ) bilirubin, total 0.2 mg/dL 0.2-1. 2 Not Available [facility] (Lab) [address] [facility], [place], [address], 08/01/2024 06:51:46 08/08/19 25 08/07/2024 CBC W/DIF F WBC 11.1 10'3/ uL 3.5-10 .5 high Not Available [facility] (Lab) [address] [place], [address], 08/08/2024 04:54:34 08/08/19 25 08/07/2024 CBC W/DIF F RBC 3.93 10'6/ uL (based on docume nted legal sex) 3.80-5 .20 Not Available [facility] (Lab) [address] [facility], [place], [address], 08/08/2024 04:54:34 08/08/19 25 08/07/2024 CBC W/DIF F HGB 9.1 g/dL (based on docume nted legal sex) 11.6-1 5.4 low Not Available [facility] (Lab) [address] [place], [address], 08/08/2024 04:54:34 08/08/19 25 08/07/2024 CBC W/DIF F HCT 31.0 % (based on docume nted legal sex) 34.0-4 5.0 low Not Available [facility] (Lab) [address], [place], [address], 08/08/2024 04:54:34 08/08/19 25 08/07/2024 CBC W/DIF F MCV 78.9 fL 80.0-9 9.0 low Not Available [facility] (Lab) [address], [place], [address], 08/08/2024 04:54:34 08/08/19 25 08/07/2024 CBC W/DIF F MCH 23.2 pg 27.0-3 4.0 low Not Available [facility] (Lab) [address], [place], [address], 08/08/2024 04:54:34 08/08/19 25 08/07/2024 CBC W/DIF F MCHC 29.4 g/dL 32.0-3 5.5 low Not Available [facility] (Lab) [address], [place], [address], 08/08/2024 04:54:34 08/08/19 25 08/07/2024 CBC W/DIF F RDW 20.0 % 11.0-1 5.0 high Not Available [facility] (Lab) [address], [place], [address], 08/08/2024 04:54:34 08/08/19 25 08/07/2024 CBC W/DIF F plt 267 10'3/ uL 150-40 0 Not Available [facility] (Lab) [address] [place], [address], 08/08/2024 04:54:34 08/08/19 25 08/07/2024 CBC W/DIF F MPV 12.6 fL 8.8-12 .1 high Not Available [facility] (Lab) [address] [facility], [place], [address], 08/08/2024 04:54:34 08/08/19 25 08/07/2024 CBC W/DIF F neutrophils 64.9 % 34.0-7 3.0 Not Available [facility] (Lab) [address] [facility], [place], [address], 08/08/2024 04:54:34 08/08/19 25 08/07/2024 CBC W/DIF F lymphocytes 26.9 % 15.0-5 0.0 Not Available [facility] (Lab) [address] [facility], [place], [address], 08/08/2024 04:54:34 08/08/19 25 08/07/2024 CBC W/DIF F monocytes 5.0 % 1.0-15 .0 Not Available [facility] (Lab) [address] [facility], [place], [address], 08/08/2024 04:54:34 08/08/19 25 08/07/2024 CBC W/DIF F eosinophils 2.5 % 0.0-8. 0 Not Available [facility] (Lab) [address] [place], [address], 08/08/2024 04:54:34 08/08/19 25 08/07/2024 CBC W/DIF F basophils 0.4 % 0.0-2. 0 Not Available [facility] (Lab) [address] [facility], [place], [address], 08/08/2024 04:54:34 08/08/19 25 08/07/2024 CBC W/DIF [...] separ ately if prese nt. Not Available [facility] (Lab) [address] [place], [address], 08/08/2024 04:54:34 08/08/19 25 08/07/2024 CBC W/DIF F absolute neutrophils 7.2 10'3/ uL 1.5-8. 0 Not Available [facility] (Lab) [address] [facility], [place], [address], 08/08/2024 04:54:34 08/08/19 25 08/07/2024 CBC W/DIF F absolute lymphocytes 3.0 10'3/ uL 1.0-4. 0 Not Available [facility] (Lab) [address] [facility], [place], [address], 08/08/2024 04:54:34 08/08/19 25 08/07/2024 CBC W/DIF F absolute monocytes 0.6 10'3/ uL 0.2-1. 0 Not Available [facility] (Lab) [address] [facility], [place], [address], 08/08/2024 04:54:34 08/08/19 25 08/07/2024 CBC W/DIF F absolute eosinophils 0.3 10'3/ uL 0.0-0. 6 Not Available [facility] (Lab) [address] [facility], [place], [address], 08/08/2024 04:54:34 08/08/19 25 08/07/2024 CBC W/DIF F absolute basophils 0.0 10'3/ uL 0.0-0. 3 Not Available [facility] (Lab) [address] [facility], [place], [address], 08/08/2024 04:54:34 08/08/19 25 08/07/2024 CBC W/DIF F absolute immature granulocytes 0.0 10'3/ uL 0.00-0 .10 Refer ence range s for nonbi nary/ inter sex or unspe cifie d gende r patie nts have not been estab lishe d. Pleas e refer to the follo wing table for range s estab lishe d for cisge nder patie nts and evalu ate in the clini shikha maxim xt of the indiv idual patie nt: https ://lennox izquierdo book. nm.or g/gen derx Not Available [facility] (Lab) [address] [facility] [address] [facility], [place], [address], 08/08/2024 04:54:34 08/08/19 25 08/07/2024 PROTE IN/CR EATIN INE RATIO , URINE creatinine, urine 165.9 mg/dL R-No refer ence range estab lishe d for this assay Not Available [facility] (Lab) [address] [facility], [place], [address], 08/08/2024 04:54:34 08/08/19 25 08/07/2024 PROTE IN/CR EATIN INE RATIO , URINE protein, urine 100 mg/dL R-No refer ence range estab lishe d for this assay Not Available [facility] (Lab) [address] [facility], [place], [address], 08/08/2024 04:54:34 08/08/19 25 08/07/2024 PROTE IN/CR [...] fican t prote inuri a. Not Available [facility] (Lab) [address] [facility], [place], [address], 08/08/2024 04:54:34 08/08/19 25 08/07/2024 URIC ACID uric acid 6.0 mg/dL 2.3-6. 6 Not Available [facility] (Lab) [address] [facility], [place], [address], 08/08/2024 04:54:34 08/08/19 25 08/07/2024 CMP(C OMPRE HENSI VE METAB OLIC PANEL ) sodium 135 mmol/ L 133-14 6 Not Available [facility] (Lab) [address] [facility], [place], [address], 08/08/2024 04:54:35 08/08/19 25 08/07/2024 CMP(C OMPRE HENSI VE METAB OLIC PANEL ) potassium 4.5 mmol/ L 3.5-5. 1 Not Available [facility] (Lab) [address] [facility], [place], [address], 08/08/2024 04:54:35 08/08/19 25 08/07/2024 CMP(C OMPRE HENSI VE METAB OLIC PANEL ) chloride 105 mmol/ L 98-107 Not Available [facility] (Lab) [address] [facility], [place], [address], 08/08/2024 04:54:35 08/08/19 25 08/07/2024 CMP(C OMPRE HENSI VE METAB OLIC PANEL ) carbon dioxide 21 mmol/ L 21-31 Not Available [facility] (Lab) [address] [facility], [place], [address], 08/08/2024 04:54:35 08/08/19 25 08/07/2024 CMP(C OMPRE HENSI VE METAB OLIC PANEL ) anion gap 9 mmol/ L 4-13 Not Available [facility] (Lab) [address] [facility], [place], [address], 08/08/2024 04:54:35 08/08/19 25 08/07/2024 CMP(C OMPRE HENSI VE METAB OLIC PANEL ) blood urea nitrogen 14 mg/dL 7-25 Not Available [facility] (Lab) [address] [facility], [place], [address], 08/08/2024 04:54:35 08/08/19 25 08/07/2024 CMP(C OMPRE HENSI VE METAB OLIC PANEL ) creatinine 0.70 mg/dL 0.60-1 .30 Not Available [facility] (Lab) [address] [facility], [place], [address], 08/08/2024 04:54:35 08/08/19 25 08/07/2024 CMP(C OMPRE HENSI VE METAB OLIC PANEL ) egfrcr (CKD-epi 2020) >90 mL/mi n/1.7 3_m2 >=60 Not Available [facility] (Lab) [address] [facility], [place], [address], 08/08/2024 04:54:35 08/08/19 25 08/07/2024 CMP(C OMPRE HENSI VE METAB OLIC PANEL ) calcium 9.3 mg/dL 8.3-10 .5 Not Available [facility] (Lab) [address] [facility], [place], [address], 08/08/2024 04:54:35 08/08/19 25 08/07/2024 CMP(C OMPRE HENSI VE METAB OLIC PANEL ) glucose 60 mg/dL 70-100 low Not Available [facility] (Lab) [address] [facility], [place], [address], 08/08/2024 04:54:35 08/08/19 25 08/07/2024 CMP(C OMPRE HENSI VE METAB OLIC PANEL ) protein, total 6.2 g/dL 6.4-8. 3 low Not Available [facility] (Lab) [address] [place], [address], 08/08/2024 04:54:35 08/08/19 25 08/07/2024 CMP(C OMPRE HENSI VE METAB OLIC PANEL ) albumin 3.4 g/dL 3.5-5. 0 low Not Available [facility] (Lab) [address] [place], [address], 08/08/2024 04:54:35 08/08/19 25 08/07/2024 CMP(C OMPRE HENSI VE METAB OLIC PANEL ) ALT 12 units /L 9-43 Not Available [facility] (Lab) [address] [facility], [place], [address], 08/08/2024 04:54:35 08/08/19 25 08/07/2024 CMP(C OMPRE HENSI VE METAB OLIC PANEL ) alkaline phosphatase 110 units /L 34-104 high Not Available [facility] (Lab) [address] [facility], [place], [address], 08/08/2024 04:54:35 08/08/19 25 08/07/2024 CMP(C OMPRE HENSI VE METAB OLIC PANEL ) AST 20 units /L 13-39 Not Available [facility] (Lab) [address] [facility], [place], [address], 08/08/2024 04:54:35 08/08/19 25 08/07/2024 CMP(C OMPRE HENSI VE METAB OLIC PANEL ) bilirubin, total 0.3 mg/dL 0.2-1. 2 Not Available [facility] (Lab) [address] [facility], [place], [address], 08/08/2024 04:54:35 01/30/20 25 01/29/2025 IMAGE GUIDE D PAP AND HPV REGAR DLESS image guided Pap, HPV regardless of Pap result SEE RESULT S BELOW abnormal CASE REPOR T: Cytol ogy Gynec ologi shikha Repor t Case: [id number] Autho eloy g Provi erik: Fidencio Fernando MD Colle cted: 01/29 1514 Order ing Locat ion: [place] Patho logy Recei parminder: 01/30 0126 First Scree n: Saskia More, [place] Patho logis t: Martin Bucio MD Speci men: Salty stanley Pap - Image d, Cervi x STATE MENT OF ADEQU ACY: Satis facto ry for evalu ation Trans forma tion zone compo nent prese nt ----- ----- ----- ----- ----- ----- ----- ----- ----- ----- ----- ----- ----- ----- ----- ----- ----- ---- FINAL DIAGN OSIS: Epith elial Cell Abnor malit y, Squam ous Cell: Atypi shikha Squam ous Cells of Undet ermin ed Keila boone (ASC- US). Elect devonte willson by Martin Bucio MD on 025 at 1207 CDT ----- ----- ----- ----- ----- ----- ----- ----- ----- ----- ----- ----- ----- ----- ----- ----- ----- ---- HPV RESUL TS: HPV mRNA E6/E7 : Posit melvin - HPV mRNA Detec donna HPV GENOT YPE 16 (RAMIRO) : Not Detec donna HPV GENOT YPE 18/45 (RAMIRO) : Not Detec donna NOTE: This high risk HPV mRNA assay detec ts fourt een high- risk HPV types (16, 18, 31, 33, 35, 39, 45, 51, 52, 56, 58, 59, 66, 68) witho ut diffe renti ation . This assay can diffe renti ate HPV 16 from HPV 18/45 , but does not diffe renti ate betwe en HPV 18 and HPV 45. A negat melvin HPV 16, 18/45 genot ype assay resul t does not exclu de the possi bilit y of cytol ogic abnor malit ies or of futur e or under lying OTF 1, OTF 3 or cance r. COMME NT: This speci men was revie wed by a Cytot echno logis t and/o r Patho logis t (as indic ated in this repor t) after evalu ation using the Thinp rep Imagi ng Syste m. CLINI SHIKHA INFOR MATIO N: Menst rual Statu s: LMP (if appli cable ): 1924 Clini shikha Histo ry/Pr eviou s Pap: Type of Neopl mauri (if appli cable ): Signi ulises long Clini shikha Findi ngs: Other Histo ry: Hormo chris (if appli cable ): BAN ESPOSITO FOLLO W-UP: Follo w up as warra nted, based on curre nt guide lines and indiv idual patie nt consi derat ions. Not Available [facility] (Lab) [address], [place], [address], 02/01/2025 14:27:03 02/27/2002/26/2025 SURGI SHIKHA PATHO LOGY surgical pathology SEE RESULT S BELOW CASE REPOR T: Surgi shikha Patho logy Repor t Case: [id number] Autho eloy mckenzie Provi erik: Fidencio Fernando MD Colle cted: 02/26 1632 Order ing Locat ion: [place] Patho logy Recei parminder: 02/27 0306 Patho logis t: Radha Taylor MD Speci mens: A) - Cervi x, CXBX B) - Endoc ervix , ECC ----- ----- ----- ----- ----- ----- ----- ----- ----- ----- ----- ----- ----- ----- ----- ----- ----- ---- FINAL DIAGN OSIS: A. Cervi x, biops y: - Fragm ents of squam ous epith elium , negat melvin for dyspl mauri. B. Endoc ervix , curet tage: - Endoc ervic al and squam ous epith elium , negat melvin for dyspl mauri. Elect devonte willson by Radha Taylor MD on 2024 at 1532 CDT ----- ----- ----- ----- ----- ----- ----- ----- ----- ----- ----- ----- ----- ----- ----- ----- ----- ---- CLINI SHIKHA INFOR MATIO N: HPV + MICRO SCOPI C DESCR IPTIO N: A micro scopi c exami natio n was perfo rmed. GROSS DESCR IPTIO N: A. Cervi x. The speci men is recei parminder in forma yeny on a biops y brush , label ed with the patie nt's name, vladimir sierra cs and 1. It consi sts of a 0.5 x 0.5 x 0.1 cm cm aggre gate of mucus and minut e kirk tissu e. The speci men is submi tted entir kevin in one casse tte. Gross ed by Kade Arellano. Endoc ervix . The speci men is recei parminder in forma yeny on a biops y brush , label ed with the patie nt's name, vladimir higginbothami cs and 2. It consi sts of a 1.0 x 0.9 x 0.1 cm cm aggre gate of mucus and minut e kirk tissu e. The speci men is submi tted entir kevin in one casse tte. The Gross ed by Kade adame Not Available [facility] (Lab) [address] [facility], [place], [address], 02/27/2025 16:35:46 02/27/2002/26/2025 pregn ayden test, urine HCG negati ve Not Available [facility] [address], [place], [address], 02/26/2025 17:01:58 08/01/19 25 07/31/2024 non-s tress test No observ ation record ed. [email or web address] [facility] [address], [place], [address], 07/31/2024 17:45:58 08/01/19 25 07/31/2024 US, obste tric, follo w-up No observ ation record ed. [email or web address] [facility] [address], [place], [address], 08/01/2024 18:42:07 08/01/19 25 08/01/2024 US, obste tric, bioph ysica l profi le + non-s tress test No observ ation record ed. [email or web address] [facility] [address], [place], [address], 08/01/2024 18:42:17 08/01/19 25 07/31/2024 US, obste tric, follo w-up No observ ation record ed. [email or web address] [facility] [address], [place], [address], 08/02/2024 00:19:04 08/05/19 25 08/03/2024 non-s tress test No observ ation record ed. [email or web address] [facility] [address], [place], [address], 08/04/2024 14:11:54 08/05/19 25 08/03/2024 non-s tress test No observ ation record ed. [email or web address] [facility] [address], [place], [address], 08/04/2024 14:13:38 08/08/19 25 08/07/2024 US, obste tric, bioph ysica l profi le + non-s tress test No observ ation record ed. [email or web address] [facility] [address], [place], [address], 08/07/2024 17:59:43 08/08/19 25 08/07/2024 US, obste tric, bioph ysica l profi le + non-s tress test No observ ation record ed. [email or web address] [facility] [address], [place], [address], 08/07/2024 21:56:46 08/08/19 25 08/07/2024 non-s tress test No observ ation record ed. [email or web address] [facility] [address], [place], [address], 08/07/2024 17:37:11 08/08/19 25 non-s tress test No observ ation record ed. [email or web address] [facility] [address], [place], [address], 08/07/2024 17:39:07 08/10/19 25 08/09/2024 imagi ng/di agnos tic resul t No observ ation record ed. [facility] [address] [facility], [place], [address], 08/10/2024 09:34:05 08/10/19 25 08/09/2024 imagi ng/di agnos tic resul t No observ ation record ed. [facility] [address], [place], [address], 08/10/2024 09:34:05 08/11/19 25 08/10/2024 non-s tress test No observ ation record ed. [email or web address] [facility] [address], [place], [address], 08/10/2024 17:01:18 08/15/19 25 08/14/2024 US, obste tric, bioph ysica l profi le No observ ation record ed. [email or web address] [facility] [address], [place], [address], 08/14/2024 23:21:02 08/15/19 25 08/14/2024 US, obste tric, bioph ysica l profi le + non-s tress test No observ ation record ed. [email or web address] [facility] [address], [place], [address], 08/14/2024 18:52:30 08/15/1908/14/2024 non-s tress test No observ ation record ed. [facility] [address], [place], [address], 08/14/2024 17:50:12 08/22/1908/21/2024 non-s tress test No observ ation record ed. [address], [place], [address], 08/28/2024 13:48:41 Result Notes None recorded. Problems Name Problem SNOMED Code Status Onset Date Resolution Date Notes Provider Name and Address Organization Details Recorded Time Anemia 027862116 Completed Hgb 9.1 Iron infusion order faxed 08/10 - refaxed 08/[address] [facility] 5 15:42:22 Anemia 079413240 Active Hgb 9.1 Iron infusion order faxed 08/10 - refaxed 08/13 Leatha wolfe [facility] 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 16:02:[address] Concept Completed 201803/16/2021 Encntr for general adult medical exam w/o abnormal findings ;Practic e ID: 0001 Taty Dodge [facility] 16:02:05 Pregnanc y [id number] Completed 202309/19/2024 Leatha Martin [facility] 21:18:55 IVF - in-vitro fertiliz ation pregnanc y [id number] 102 Completed 2023 faxed echo order 07/17 [facility] schedule d 08/09 echo Leatha Martin [facility] 15:42:22 Advanced maternal age 080293637 Completed 2023 Leatha Martin [facility] 15:42:22 Pregnanc y-induce d hyperten sunday 26198980 Completed 2024 MFM referral faxed Taylor 08/07/24 Leatha Martin [facility] 5 15:42:22 Notes:boardline preeclampsia Problem Notes None recorded. Procedures Surgical History Date Name Laterality Status Provider Name and Address Organization Details Recorded Time 02/27/20 25 Colposcopy completed RAJ VINES MD [address], [place], [address], [facility] 02/27/2025 17:58:30 01/30/20 25 Date of Last Pap Smear completed Rosalie Beckett [facility] 02/26/2025 16:59:54 09/11/19 25 section completed [facility] 09/19/2024 21:19:14 02/02/20 24 Embryo transfer intrauterine completed [facility] 08/04/2024 14:07:31 11/28/19 24 Hysteroscopy completed [facility] 08/04/2024 14:06:37 10/29/19 24 in vitro fertilization using donor spermatozoa completed [facility] 08/04/2024 14:07:56 08/29/19 24 intrauterine artificial insemination completed [facility] 08/04/2024 14:07:12 07/29/19 24 intrauterine artificial insemination completed [facility] 08/04/2024 14:07:06 04/29/20 23 intrauterine artificial insemination completed [facility] 08/04/2024 14:07:02 03/30/20 23 intrauterine artificial insemination completed [facility] 08/04/2024 14:06:53 03/17/20 20 Date of Last Mammogram completed Anais Camacho [facility] 01/29/2025 14:56:00 05/30/19 18 endoscopy completed [facility] 07/21/2022 12:51:17 05/30/19 15 extraction of wisdom tooth completed [facility] 07/21/2022 12:51:07 05/30/18 93 Appendectomy completed [facility] 07/21/2022 12:51:45 Imaging Results None recorded. Procedure Notes None recorded. Medical Equipment None Reported. Allergies No known drug allergies Medications Name Sig Start Date Stop Date Status Note LastModified by Organization Details LastModified Time Prescript ion - Renewal 03/16 completed Not Available Not Available Not Available fed-ex priority overnight TUE-11/07- PT HM SIG REQ DECLINED COUNSELI PATRICIA Mckenzie 04/02 completed Not Available Not Available Not Available fed-ex nextday am TUE- PT HOME WITH SIG - GD 04/02 completed Not Available Not Available Not Available progester one (micro) 200mg supp INSERT 1 SUPPOSIT ORY VAGINALL Y TWICE DAILY DIRECTED . DO NOT START UNTIL INSTRUCT ED 10/24 completed Not Available Not Available Not Available [facility] menopur 75iu inj INJECT 75 IU (1 [...] 02/16-01/29 1 tue-tue no sig DECLINED COUNSELI PATRICIA ac' 04/02 completed Not Available Not Available [...] Not Available Not Available BD Regular Bevel Westpoint 27 gauge x 1/2 USE DIRECTED [MENOPUR MEDICATI ON] INJECT SUBCUTAN EOUSLY 04/02 completed Not Available Not Available Not Available amoxicill in 500 mg capsule TAKE 1 CAPSULE BY MOUTH THREE TIMES A DAY UNTIL FINISHED 03/28 completed Not Available Not Available Not Available Unithroid 88 mcg tablet TAKE 1 TABLET BY MOUTH EVERY DAY IN THE MORNING 10/24 completed Not Available Not Available Not Available Apri 0.15 mg-0.03 mg tablet TAKE 1 TABLET BY MOUTH EVERY DAY 07/21 completed Not Available Not Available Not Available azithromy otf 250 mg tablet TAKE 2 TABLETS BY MOUTH TODAY, THEN TAKE 1 TABLET DAILY FOR 4 DAYS DIRECTED 03/28 completed Not Available Not Available Not Available valacyclo vir 1 gram tablet TAKE 1 TABLET BY MOUTH EVERY 8 HOURS active Not Available Not Available No t Available hydrocodo ne 5 mg-acetam inophen 325 [...] twice a day by translin gual route. 10/24 completed Not Available Not Available Not Available Unithroid 112 mcg tablet TAKE 1 TABLET BY MOUTH EVERY DAY active Not Available Not Available No t Available levothyro xine 100 mcg tablet PLEASE SEE ATTACHED FOR DETAILED DIRECTIO NS 10/24 completed Not Available Not Available Not Available progester one 50 mg/mL intramusc ular oil INJECT 2 ML INTRAMUS CULARLY ONCE DAILY DIRECTED 10/24 completed Not Available Not Available Not Available Synthroid 25 mcg tablet take 1 tablet by oral route every day 01/18 completed Prescrib sulema Paz e: No Locat ion: [facility] M odify By: [email or web address] tz Encou nter DateTime : 11/17/19 16 03:33:08 [...] Not Available Not Available BD Regular Bevel Westpoint 22 gauge x 1 1/2 USE DIRECTED [...] completed Not Available Not Available Not Available labetalol 100 mg tablet TAKE 1 TABLET BY MOUTH TWICE A DAY 10/24 completed Not Available Not Available Not Available Vitamin D2 1,250 mcg (50,000 unit) capsule take 1 capsule by oral route every week 01/18 completed Prescrib ed Elsewher e: No Locat ion: [facility] odify By: maureen tz Armando nter DateTime : 11/17/19 16 03:33:08 PM [...] (250MCG) SUBCUTAN EOUSLY DAILY WHEN DIRECTED BY 04/02 completed Not Available Not Available Not Available Follistim AQ 300 unit/0.36 mL subcutane ous cartridge INJECT 75 SUBCUTAN EOUSLY EVERY OTHER DAY DIRECTED DO NO START UNTIL INSTRUCT ED 04/02 completed Not Available Not Available Not Available BD Regular Bevel Westpoint 25 gauge x 1 1/2 USE DIRECTED [H.C.G. MEDICATI ON] INJECT INTRAMUS CULARLY 04/02 completed Not Available Not Available Not Available Follistim AQ 900 unit/1.08 mL subcutane ous cartridge INJECT 300 IU SUBCUTAN EOUSLY ONCE DAILY DIRECTED 04/02 completed Not Available Not Available Not Available folic acid 01/29 completed Not Available Not Available Not Available [...] Not Available Not Available Not Available Acid Social Media Director (omeprazo le) active Not Available Not Available Not Available Maribel 0.25 mg-0.035 mg tablet TAKE 1 TABLET BY MOUTH EVERY DAY 04/02 completed Not Available Not Available Not Available COVID-19 At-Home Test kit FOLLOW INSTRUCT IONS INCLUDED WITH THE PACKAGE. 04/02 completed Not Available Not Available Not Available Vitals Date Recorded Body height Body mass index (BMI) Body weight Systolic And Diastolic Provider Name and Address Organization Details Last Updated DateTime 08/14/2024 162.56 cm 29 kg/m2 17392.11 g 158/98 mm[Hg] Sherly Solano [facility] 08/14/2024 17:46:53 Date Recorded Body height Body mass index (BMI) Body weight Systolic And Diastolic Provider Name and Address Organization Details Last Updated DateTime 10/24/2024 162.56 cm 24.7 kg/m2 33310.3 g 118/81 mm[Hg] Leatha Mario [facility] 10/24/2024 15:39:36 Date Recorded Body height Body mass index (BMI) Body weight Systolic And Diastolic Provider Name and Address Organization Details Last Updated DateTime 01/29/2025 162.56 cm 26.4 kg/m2 23325.22 g 125/90 mm[Hg] Anais Doug [facility] 01/29/2025 14:54:15 Date Recorded Body height Body mass index (BMI) Body weight Systolic And Diastolic Provider Name and Address Organization Details Last Updated DateTime 02/26/2025 162.56 cm 26.8 kg/m2 81179.41 g 132/84 mm[Hg] Rosalie Sujit [facility] 02/26/2025 16:59:40 Social History Question Answer Notes LastModified by Organizat ion Details LastModified Time Tobacco Smoking Status Never Smoker Zina Philip yaneth, [facility] 09/08/2022 12:26:41 Do You Have An Advance Directive? No Information n ot available 03/17/2021 How Many Years Have You Consumed Alcohol? 17 [email or web address] Information not available 07/21/2022 Are You Blind [...] Or The Highest Degree You Have Received? [id number] Information not available 03/17/2021 Are There Any [...] Information not available 03/17/2021 Do You Use Sunscreen Routinely? Yes Information not available 03/16/2021 Have You Used IV Drugs? No Information not available 03/17/2021 Do You Have Difficulty Walking Or Climbing Stairs? No Information not available 09/08/2022 Sex: Unknown Functional Status Question Answer Note LastModified by Organizat ion Details LastModified Time Do you use any illicit or recreational drugs? No Information not available 03/16/2021 What is your level of alcohol consumption? None Information not available 07/21/2022 Are you able to walk independently without assistance or assistive devices? [email or web address] Information not available 03/16/2021 Are you able to care for yourself independently? 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 No [email or web address] Information not available 09/08/2022 What is your exercise level? Occasional Information not available 03/16/2021 Mental Status Question Answer Note LastModified by Organization D etails LastModified Time Do you feel stressed (tense, restless, nervous, or anxious, or unable to sleep at night)? [id number] [email or web address] Information not available 07/21/2022 Family History Relationship Description Onset Age of this Age Resolved Age Notes LastModified by Organization Details LastModified Time Mother Hypertensive disorder [email or web address] Not available 2023 14:53:18 Father Hypertensive disorder [email or web address] Not available 2023 14:53:18 Father Hypercholest erolemia [email or web address] Not available 2023 14:53:18 Father Heart disease [email or web address] Not available 2023 14:53:18 Father Malignant neoplasm of pharynx [email or web address] Not available 2023 14:53:18 Paternal Grandmother Carcinoma in situ of stomach [email or web address] Not available 2023 14:53:18 Paternal Grandmother Malignant neoplasm of colon [email or web address] Not available 2023 14:53:18 Medical History Condition [...] N Thrombophilias N Gynecological History Statement/Question Response Flow Light Date of Last Mammogram 03/17/2020 Date of LMP 02/17/2025 N On BCP's at Conception? N STIs/STDs N Was last menstrual period normal Y HPV Vaccine N Duration of Flow (days) 4 11 Current Control Method Other Are cycles usually normal Y Frequency of Cycle (Q days) 28 Sexually Active? Y None Menses Monthly Y Age of first menstrual cycle 9 Date of Last Pap Smear 01/29/2025 Sexual Problems? N LMP Definite Desired Control Method None N Obstetrics History GPAL:G 1 P 0 1 0 1 Type Value Premature 1 Living 1 Total 1 Past Encounters Encounter ID Performer Location Encounter Start Date Encounter Closed Date Diagnosis/Indication Diagnosis SNOMED-CT Code Diagnosis ICD10 Code Diagnosis IMO Codes Diagnosis Note [id number] Ling Wallace , [facility] [address] [address] 03/14/2020 10:09:02 03/14/2020 12:28:52 Gynecologic examination 70632279 Z01.419 Take Calcium with Vitamin D 1200mg [...] her control. RF sent Pain in axilla 894476261 M79.629 Bilateral axilla pain traveling down through tail of ortega. Has been present since May 2019. There daily. No changes with onset of cycle. Agreed to do labs & imaging. Bilateral knee pain 1187 789813 2150146 M25.561 M25.562 Going on for past couple of years. would like to have this issue checked out as it is starting to get worse. [place]. [id number] Ling Wallace , [facility] [address] [address] 03/17/2021 10:03:52 03/17/2021 10:53:21 Gynecologic examination 35511394 Z01.419 Take Calcium with Vitamin D 1200mg [...] primrose oil daily Contracept ion care management 403814875 Z30.9 Happy on OCPRF sent Family his tory of cancer of colon 155592343 Z80.0 Discussed invitae genetic cancer screeningW ill considerAw are we can draw this here.Kimber marin given for more informatio n [id number] Justyna Pettit [facility] [address],[place] [address] 07/21/2022 12:15:07 07/21/2022 14:02:50 Trying to conceive 017318497 Z31.9 pt will research sperm cagle, discussed COST, ran benefitsre viewed letrozole se risks and benefits including ovarian hyperstimu lation , possible multiple gestation, will let me know if ready to start IUI, all handouts given [id number] Justyna Pettit [facility] [address],[place] [address] 09/08/2022 12:26:24 09/08/2022 13:20:09 Trying to conceive 301185772 Z31.9 Hypothyroidism 55062814 E03.[address] treadwell at the end of this month, when thyroid stabilized plan letrozole, IUI in officeplea se call with any questions or concerns [id number] RAJ VINES MD [facility] [address],[place] [address] 03/28/2024 14:36:56 03/28/2024 15:43:12 screening 631349229 Z36.0 Hypothyroidism 57282489 E03.9 test positive 345606857 Z32.01 1. Exam today within normal limits.2. Ultrasound today confirms GA and viability. EDC3. GC/Clamydi a testing done: will f/u as indicated. 4. ACOG guidelines and plan of care for reviewed with patient. All questions answered.5 . Return to office at 12 weeks for new OB visit6. Will need new OB labs, ordered.7. Genetic screening: ordered. [id number] Nathaniel Horta MD [facility] [address],[place] [address] 04/09/2024 15:25:30 04/09/2024 16:39:59 screening 170406692 Z36.82 Z3A.12 [id number] RAJ VINES MD [facility] [address],[place] [address] 05/01/2024 14:01:09 05/01/2024 14:35:46 Advanced maternal age 125352569 O09.512 IVF - in-v itro fertilization 5125076508 2102 O09.819 Gestation period, 15 weeks 8515449 Z3A.15 [id number] Nathaniel Horta MD [facility] [address],[place] [address] 05/31/2024 15:02:03 05/31/2024 16:23:18 screening for malformation 835891777 Z36.3 O09.812 Z3A.19 [id number] RAJ VINES MD [facility] [address],[place] [address] 05/31/2024 15:02:26 05/31/2024 16:51:17 Nausea and vomiting 03792729 R11.2 Advanced m aternal age 081225731 O09.512 IVF - in-v itro fertilization 8101009308 2102 O09.819 Gestation period, 19 weeks 56512396 Z3A.19 [id number] RAJ VINES MD [facility] [address],[place] [address] 06/26/2024 15:58:07 06/26/2024 16:32:11 Advanced maternal age 255888093 O09.512 IVF - in-v itro fertilization 2099383606 2102 O09.819 Gestation period, 23 weeks 91805511 Z3A.23 [id number] RAJ VINES MD [facility] [address],[place] [address] 07/25/2024 09:49:36 07/27/2024 07:42:44 -induced hypertension 66488921 O13.9 - gestationa l HTN diagnosed at 27 weeks- on bASA ppx since 12 weeks- BPs 140s-150s/ 80s-90s- will initiate twice weekly testing, weekly labs- plan for delivery at 37 weeks- continue to monitor for progressio n to preeclamps ia IVF - in-v itro fertilization 4235134855 2102 O09.819 - echo order sent Advanced m aternal age 631600156 O09.512 Gestation period, 27 weeks 44836128 Z3A.27 - continue PNV [id number] RAJ VINES MD [facility] [address],[place] [address] 07/31/2024 16:44:31 07/31/2024 17:49:33 Chronic hypertension complicating AND/OR reason for care during 20095028 O16.9 [id number] Nathaniel Horta MD [facility] [address],[place] [address] 07/31/2024 16:45:05 07/31/2024 18:10:32 -induced hypertension 09266104 O13.9 O09.813 O09.513 Z3A.28 [id number] RAJ VINES MD [facility] [address],[place] [address] 07/31/2024 16:45:19 08/02/2024 10:00:10 -induced hypertension 82132652 O13.9 - gestationa l HTN diagnosed at 27 weeks- on bASA ppx since 12 weeks- BPs 140s-150s/ 80s-90s- twice weekly testing, weekly labs- plan for delivery at 37 weeks- continue to monitor for progressio n to preeclamps ia Advanced m aternal age 486027713 O09.512 IVF - in-v itro fertilization 8219368187 2102 O09.819 - echo order sent Gestation period, 28 weeks 96390266 Z3A.28 [id number] MD Anette JENKINS [address],[place] [address] 08/03/2024 16:02:52 08/06/2024 03:13:36 IVF - in-vitro fertilization 8583362918 2102 O09.819 [id number] RAJ VINES MD [facility] [address],[place] [address] 08/07/2024 15:52:25 08/07/2024 16:28:08 -induced hypertension 06801478 O13.9 - gestationa l HTN diagnosed at 27 weeks- on bASA ppx since 12 weeks- BPs 140s-150s/ 80s-90s- twice weekly testing, weekly labs- plan for delivery at 37 weeks- continue to monitor for progressio n to preeclamps ia Advanced m aternal age 953620391 O09.512 IVF - in-v itro fertilization 7167825183 2102 O09.819 - echo scheduled 08/09 Gestation period, 29 weeks 97046307 Z3A.29 - continue PNV [id number] Nathaniel Horta MD [facility] [address],[place] [address] 08/07/2024 15:53:04 08/07/2024 17:11:38 IVF - in-vitro fertilization 8199395569 2102 O09.813 O13.3 O09.513 [id number] RAJ VINES MD [facility] [address],[place] [address] 08/07/2024 15:53:16 08/07/2024 17:38:00 -induced hypertension 93348105 O13.9 Chronic hy pertension complicating AND/OR reason for care during 69102732 O16.9 [id number] RAJ VINES MD [facility] [address],[place] [address] 08/10/2024 16:18:25 08/13/2024 05:08:05 IVF - in-vitro fertilization 9237022688 2102 O09.819 - echo scheduled [id number]/09550 Nathaniel Horta MD [facility] [address],[place] [address] 08/14/2024 16:01:59 08/14/2024 16:56:41 Chronic hypertension complicating AND/OR reason for care during 73153497 O09.813 O09.513 Z3A.30 [id number] RAJ VINES MD [facility] [address],[place] [address] 08/14/2024 16:02:29 08/14/2024 17:52:39 IVF - in-vitro fertilization 7171929266 2 O09.819 - echo scheduled 08/09 [id number] RAJ VINES MD [facility] [address],[place] [address] 08/14/2024 16:02:39 08/21/2024 06:26:51 Mild pre-eclampsia 60799318 O14.03 - diagnostic PC ratio- asymptomat ic- [facility] appointmen t Tuesday Advanced m aternal age 175601426 O09.512 IVF - in-v itro fertilization 1210128098 2 O09.819 - echo normal 08/09 Gestation period, 31 weeks 56426319 Z3A.31 [id number] Justyna Pettit [facility] [address],[place] [address] 10/24/2024 15:13:45 10/25/2024 16:50:55 care status 542045153 Z39.2 3227330 normal exam f/u dr vines for wwe [id number] RAJ VINES MD [facility] [address],[place] [address] 01/29/2025 14:42:09 01/29/2025 17:14:50 Gynecologic examination 84764904 Z01.419 [id number] [facility]- Cervical cancer screening: Pap smear obtained today, will follow up on the results with the patient as they become available- Breast cancer screening: mammogram ordered- Colon cancer screening: does not qualify- HPV immunizati on: has not received- STD testing: declined- hereditary cancer screening: does not qualify for testing [id number] RAJ VINES MD [facility] [address],[place] [address] 02/26/2025 16:41:32 02/28/2025 12:04:40 Human papillomavirus deoxyribonucleic acid detected, high risk on cervical specimen [id number] R87.810 [id number] - ASCUS +HPV pap smear- colposcopy performed without issue- will follow up on results as available Health Concerns Section Related Observation LastModified by Organization Detai ls LastModified Time None Recorded Concern Status LastModified by Organization Details LastModified Time None Recorded Advance Directives Directive N: Payers Insurance Date Sequence Insurance Name Policy Number Policy Ambrose Covered Member ID Ambrose Member ID Guarantor Name 03/04/2025 2 [facility] [id number] [place] [id number] Blanca Winters Romina 03/04/2025 1 [facility] - DOS 05/30/2024 AND AFTER Blanca Singh Romina [id number] Blanca Singh Romina 01/29/2025 1 [facility] (PPO) [id number] Blanca Romina [id number] Blanca Singh Romina 01/29/2025 1 [facility] [id number] Blanca Winters Romina [id number] Blanca Singh Romina 01/29/2025 1 [facility] - DOS PRIOR TO 2024 (PPO) Blanca Singh Romina [id number] Blanca Singh Romina Notes Date Note Type Note Provider Name and Address Organization Details Recorded Time 5 text/html Generic HPI TemplateReported by Patient RAJ VINES MD [address], [place], [address], [facility] 08/20/2024 13:03:47 5 text/html VisitReported by PatientHPIFor quality, patient reportsprimary c/s. For context, patient reportscomplications of : pre-eclampsia,complicatio ns of labor: pre-eclampsia, complications: none,feeding choice: breast and bottle,good support from partner/family, andresumed menstrual bleeding no. For associated symptoms, patient reportsno abnormal bleeding,no vaginal discharge,no pelvic pain,laceration well healed,no constipation,no fecal incontinence,no dysuria,no urinary incontinence,no fever,no problems,no mastitis, andnormal mood. For contraception plan, (discussed heavy cycles will call if desires something to help manage).ROS as noted in the HPI Justyna Pettit CNM [address], [place], [address], [facility] 10/25/2024 16:25:24 5 text/html Annual GYNReported by Patient Presents today for her annual well-woman exam. Denies abnormal vaginal discharge. She is sexually active and denies dyspareunia. She is in a same sex relationship. Considering another egg retrieval. She has not noticed any changes or masses in her breasts. Regular periods since weaning. RAJ VINES MD [address], [place], [address], [facility] 01/29/2025 17:05:51 5 text/html Patient presents for colposcopy indicated for ASCUS +HPV RAJ VINES MD [address], [place], [address], [facility] 02/27/2025 17:59:09 OBGyn Episode Ob Episode Information Episode Created Date Number of Fetuses Patient Bloodtype Patient rh Status Prepregnancy Weight lbs Domestic Partner Domestic Partner Phone Father Name Taco Maker Status 05/01/20 24 1 B Positive CLOSED Fetus Data First Name Last Name Admitted to NICU Weight (g) Sex Living Outcome Pediatric Complications Fetus ID Race Codes Race Delivery Type 2097.86 3 F Prematur e [id number] Primary Problems Problem Notes per Taylor IBRAHIM weekly labs he re /BPs log at home Problem Name Start Date End Date Resolution Snomed Code Not e -induced hypertension 08/04/2024 [id number] [facility] referral faxed Taylor 08/07/24 Anemia [id number] Hgb 9.1 Ir on infusion order faxed 08/10 - refaxed 08/13 IVF - in-vitro fertilization 05/01/2024 [id number] faxed e cho order 07/17 Taylor scheduled 08/09 echo Advanced maternal age 05/01/2024 [id number] Pre-eclampsia [id number] withou t severe features; per Taylor IBRAHIM BP log BID, weekly labs to see Taylor IBRAHIM this month scheduled 08/17 10:15 [facility] office visit Fernando Calculation Initial Fernando Date [...] Date Ultra Sound Latest Days Gestation 0 [email or web address] 05/01/2024 10/23/19 25 0 Pre-selina Flowsheet Flowsheet Date 05/01/2024 Boogie Score Blood Edema Fundus Height Fundus Units Glucose Ketones Leukocytes Nitrite Labor Signs Protein Cervic Dilation Cervic Effacement Cervic Station neg none Type Weight in lbs Pre/Post Dialysis Refused Weight 171.522541616587 BP Diastolic BP Location Tested BP Systolic [...] Type Weight in lbs Pre/Post Dialysis Refused 168.653116382416 BP Diastolic BP Location Tested BP Systolic [...] Type Weight in lbs Pre/Post Dialysis Refused 168.580479802316 BP Diastolic BP Location Tested BP Systolic [...] Weight in lbs Pre/Post Dialysis Refused Weight 168.355974604393 BP Diastolic BP Location Tested BP Systolic [...] Weight in lbs Pre/Post Dialysis Refused Weight 168.145922172769 BP Diastolic BP Location Tested BP Systolic [...] Weight in lbs Pre/Post Dialysis Refused Weight 168.061439535587 BP Diastolic BP Location Tested BP Systolic [...] Weight in lbs Pre/Post Dialysis Refused Weight 166.197791513753 BP Diastolic BP Location Tested BP Systolic BP Type 94 151 Fetus Heart Rate Present Fetus Movement Comments Flowsheet Date 08/07/2024 Boogie Score Blood Edema Fundus Height Fundus Units Glucose Ketones Leukocytes Nitrite Labor Signs Protein Cervic Dilation Cervic Effacement Cervic Station neg none Type Weight in lbs Pre/Post Dialysis Refused Weight 166.133151883108 BP Diastolic BP Location Tested BP Systolic [...] Weight in lbs Pre/Post Dialysis Refused Weight 166.740186779207 BP Diastolic BP Location Tested BP Systolic BP Type 89 L arm 144 sitting Fetus Heart Rate Present Fetus Movement Comments Flowsheet Date 08/14/2024 Boogie Score Blood Edema Fundus Height Fundus Units Glucose Ketones Leukocytes Nitrite Labor Signs Protein Cervic Dilation Cervic Effacement Cervic Station Type Weight in lbs Pre/Post Dialysis Refused BP Diastolic BP Location Tested BP Systolic BP Type Fetus Heart Rate Present Fetus Movement Comments Flowsheet Date 08/14/2024 Boogie Score Blood Edema Fundus Height Fundus Units Glucose Ketones Leukocytes Nitrite Labor Signs Protein Cervic Dilation Cervic Effacement Cervic Station Type Weight in lbs Pre/Post Dialysis Refused BP Diastolic BP Location Tested BP Systolic BP Type Fetus Heart Rate Present Fetus Movement Comments Flowsheet Date 08/14/2024 Boogie Score Blood Edema Fundus Height Fundus Units Glucose Ketones Leukocytes Nitrite Labor Signs Protein Cervic Dilation Cervic Effacement Cervic Station neg none Type Weight in lbs Pre/Post Dialysis Refused Weight 169.348968136966 BP Diastolic BP Location Tested BP Systolic BP Type 98 L arm 158 sitting Fetus Heart Rate Present A 135 Fetus Movement A Yes Comments Good movement. Denies headaches, vision changes, chest pain, dyspnea, RUQ pain or epigastric pain. BP elevated at home. Labs overall normal aside from diagnostic PC ratio and stable Hgb. BPP 10/10 today. [facility] appointment Tuesday. RTC for testing. Flowsheet Date 10/24/2024 Boogie Score Blood Edema Fundus Height Fundus Units Glucose Ketones Leukocytes Nitrite Labor Signs Protein Cervic Dilation Cervic Effacement Cervic Station Type Weight in lbs Pre/Post Dialysis Refused Weight 144.86393412051 BP Diastolic BP Location Tested BP Systolic BP Type 81 118 Fetus Heart Rate Present Fetus Movement Comments Menstrual History Last Menstrual Date Menses Monthly On Bcp Conception Prior Menses Frequency Hcg Plus Date Menarche Onset Age 0712/02/2023 Delivery Information Delivery Date Delivery Type Labor Anesthesia Weeks Gestation Incision Type Labor Labor Length Hrs Delivered By Post Complications Tubal Sterilization Discharge Date Comments 5 Induce d 34 Low Transvers e true Anxiety/I VF/hypoth yrodism/I DA Preeclamp kandi / hx back fracture Discharge Information Feeding Method Contraceptive Method Maternal HG B and HCT Levels
== END 2025-04-01 15:41 | disposition home or self-care (01) ==
PROVIDERS: PCP Family Medicine Adolescent Medicine; Visit Provider Family Medicine Adolescent Medicine
DX: S22.050A Wedge compression fracture of T5-T6 vertebra, initial encounter for closed fracture (principal); X58.XXXA Exposure to other specified factors, initial encounter
CPT/HCPCS: 72146